=== PATIENT | male | born 1950 | race Caucasian/White ===

== ENCOUNTER 2017-03-08 11:03 | Inpatient (IN) | payer BC ==
[2017-03-08 11:18] VITALS: BMI 28.7
--- NOTE | 2017-03-08 11:49 | PDOC ---
History of Present Illness - General Chief Complaint: CVA/TIA Stated Complaint: NUMBNESS (HANDS) Time Seen by Provider: 03/08/17 11:23 - History of Present Illness Initial Comments: 03/08/17 11:44 66 yo M with h/o CAD, ME s/p CABG, HTN, and RA who presents withhand numbness/ tingling. Pt. reports increased numbness/tingling of BL distal extremities, lateral forearms, and deltoid muscles beginning Wednesday evening ( 03/06).Was shoveling prior to incident. States that numbness and tingling of shoulder and arms has improved, but distal fingertips remains. Denies weakness, N/V, fevers/ chills, SOB, GI, or complaints. Denies neck trauma/straining. Denies h/o nutritional deficits. Past History - Past Medical History Allergies/Adverse Reactions: Allergies Allergy/AdvReac Type Severity Reaction Status Date / Time No Known Allergies Allergy Verified 03/08/17 11:14 Home Medications: Ambulatory Orders Aspirin [ASA -] 81 mg PO DAILY 05/10/13 Atorvastatin Ca [Lipitor -] 10 mg PO HS 05/10/13 Metoprolol Tartrate [Lopressor -] 25 mg PO DAILY 05/10/13 Cancer: Yes (prostate) Cardiac Disorders: Yes HTN: Yes Hypercholesterolemia: Yes - Surgical History Cardiac Surgery: Yes (STENT x2) - Immunization History Immunization Up to Date: No - Psycho/Social/Smoking Cessation Hx Suicidal Ideation: No Smoking Status: Yes Smoking History: Former smoker Have you smoked in the past 12 months: Yes Number of Cigarettes Smoked Daily: 2 If you are a former smoker, when did you quit?: 3 weeks ago Information on smoking cessation initiated: No Hx Alcohol Use: No Drug/Substance Use Hx: No Review of Systems - Review of Systems Comments:: 03/08/17 11:50 GENERAL/CONSTITUTIONAL: No fever or chills. No weakness. HEAD, EYES, EARS, NOSE AND THROAT: No change in vision. No ear pain or discharge. No sore throat.- CARDIOVASCULAR: No chest pain or shortness of breath RESPIRATORY: No cough, wheezing, or hemoptysis. GASTROINTESTINAL: No nausea, vomiting, diarrhea or constipation. GENITOURINARY: No dysuria, frequency, or change in urination. MUSCULOSKELETAL: No joint or muscle swelling or pain. No neck or back pain. SKIN: No rash NEUROLOGIC: +Numbness/tingling. No headache, vertigo, loss of consciousness, or change in strength. ENDOCRINE: No increased thirst. No abnormal weight change HEMATOLOGIC/LYMPHATIC: No anemia, easy bleeding, or history of blood clots. ALLERGIC/IMMUNOLOGIC: No hives or skin allergy. *Physical Exam - Vital Signs Last Vital Signs Temp Pulse Resp BP Pulse Ox 97.6 F 45 L 18 159/76 98 03/08/17 11:15 03/08/17 11:15 03/08/17 11:15 03/08/17 11:15 03/08/17 11:15 - Physical Exam Comments: 03/08/17 11:53 GENERAL: Awake, alert, and fully oriented, in no acute distress HEAD: No signs of trauma, normocephalic, atraumatic EYES: PERRLA, EOMI, sclera anicteric, conjunctiva clear ENT: Auricles normal inspection, hearing grossly normal, nares patent, oropharynx clear without exudates. Moist mucosa NECK: Normal ROM, supple, no lymphadenopathy, JVD, or masses LUNGS: No distress, speaks full sentences, clear to auscultation bilaterally HEART: Regular rate and rhythm, normal S1 and S2, no murmurs, rubs or gallops, peripheral pulses normal and equal bilaterally. EXTREMITIES: Normal inspection, Normal range of motion, no edema. No clubbing or cyanosis. NEUROLOGICAL: Cranial nerves II through XII grossly intact. Gross motor strength and sensation intact. Normal TAYO, absent dysmetria on FTN. Normal speech, normal gait, no focal sensorimotor deficits SKIN: Warm, Dry, normal turgor, no rashes or lesions noted. ED Treatment Course - LABORATORY CBC & Chemistry Diagram: 03/08/17 11:42 03/08/17 11:42 - RADIOLOGY Radiograph Interpretation: 03/08/17 14:[address] (without contrast) Clinical information: arm numbness, tingling Multiplanar imaging was performed. There is a mild reversal of the cervical lordosis. Moderate to marked multilevel degenerative disc space narrowing is noted with associated spondylosis. Moderate right C3-C4 degenerative facet arthropathy is seen. There is mild multilevel left-sided facet arthropathy. Moderate C3-C4 and C5-C6 central canal stenosis is seen secondary to spondylosis. Marked right C3-C4, moderate to marked left C3-C4, marked right C4-C5, moderate to marked left C4- C5, marked right C5-C6, moderate left C5-C6, marked right C6-C7 and moderate to marked left C6-C7 foraminal stenoses are noted secondary to uncovertebral joint hypertrophy. No gross disc herniation is identified allowing for beam hardening artifact. The perivertebral soft tissues demonstrate no obvious abnormality. Impression: Multilevel canal stenosis is seen as discussed above. Medical Decision Making - Medical Decision Making 03/08/17 11:54 66 yo M with h/o CAD, ME s/p CABG, HTN, and RA who presents with BL hand numbness/tingling. Patient with chief complaint of bilateral UE parasthesias with no associated weakness. Low suspicion for CVA given absent neuro deficits on physical exam. Low suspicion for DVT given absent exam findings. Low suspicion for PAD. Pulses intact and patient with absent clinical s/s. DDX: Nutritional deficit, Anxiety ED course CBC, CMP, Mg, Ph, TSH Cardiac Profile CBC: Unremarkable Trop: 0.08 CK-MB/CK index: 390/8.3 03/08/17 12:[address] Reyna on phone, He recommends CT and MRI without contrast to evaluate possible central cord syndrome vs. raman Shovelers fracture. 03/08/17 14:37 MRI Cervical: IMPRESSION: Small to moderate central/right paramedian C3-C4 disc herniation. Small to moderate central C5-C6 disc herniation. Multilevel bilateral foraminal stenoses. Multilevel degenerative disc and facet joint changes. CT: Cervical: Impression: Multilevel canal stenosis is seen as discussed above. Dr. Walsh will perform surgery on pt. within 48 hours. Admit to [facility]. *DC/Admit/Observation/Transfer Diagnosis at time of Disposition: Cervical spinal stenosis - Discharge Dispostion Condition at time of disposition: Good Admit: Yes - Referrals Referrals: Brooks Franco MD [Primary Care Provider] -
[2017-03-08] MEDS ORDERED: KETOROLAC TROMETHAMINE 30 MG/1 ML VIAL IVPUSH ONE (12:01)
[2017-03-08 12:06] LABS: MCH 31.6 pg (25.7-33.7); MCHC 33.8 g/dl (32.0-35.9); MEAN CELL VOLUME 93.4 fl (80-96); MEAN PLT VOLUME 8.3 fl (7.5-11.1); NEUTROPHILS 46.9 % (42.8-82.8); PLATELET COUNT 250 K/MM3 (134-434); RDW 13.6 % (11.9-15.9)
[2017-03-08] MEDS ORDERED: KETOROLAC TROMETHAMINE 30 MG/1 ML VIAL ONE (12:10)
[2017-03-08 12:36] LABS: ALBUMIN 3.8 g/dl (3.4-5.0); ALK PHOS 66 U/L (45-117); ANION GAP 8 (8-16); BILIRUBIN,TOTAL 0.2 mg/dL (0.2-1.0); CALCIUM 8.9 mg/dL (8.5-10.1); CO2 27 mmol/L (21-32); GLUCOSE,RANDOM 96 mg/dL (74-106); SGOT/AST 22 U/L (15-37); SGPT/ALT 34 U/L (12-78)
--- NOTE | 2017-03-08 12:41 | PDOC ---
Attending Attestation - Resident Resident Name: DenzelAustin - ED Attending Attestation I have performed the following: I have examined & evaluated the patient, The case was reviewed & discussed with the resident, I agree w/resident's findings & plan, Exceptions are as noted - HPI HPI: 03/08/17 12:52 66-year-old male with past medical history of rheumatoid arthritis, coronary disease, hypertension presents with bilateral paresthesias and numbness along the upper extremities. 3 days ago, the patient was shoveling quite vigorously in the daughter. Subsequently the following day, developed keep-like distribution of numbness, burning and numbness along the fingertips the fingers and the arms. Status worse in the ulnar distribution. Denies chest pain or short of breath. Denies neck pain. - Physicial Exam PE: 03/08/17 12:55 GENERAL: Awake, alert, and fully oriented, in no acute distress. HEAD: No signs of trauma EYES: PERRLA, EOMI, sclera anicteric, conjunctiva clear ENT: Auricles normal inspection, hearing grossly normal, nares patent, oropharynx clear without exudates. NECK: Normal ROM, supple, no lymphadenopathy, JVD, or masses LUNGS: Breath sounds equal, clear to auscultation bilaterally. No wheezes, and no crackles HEART: Regular rate and rhythm, normal S1 and S2, no murmurs, rubs or gallops ABDOMEN: Soft, nontender, normoactive bowel sounds. No guarding, no rebound. No masses EXTREMITIES: Normal range of motion, no edema. No clubbing or cyanosis. No cords, erythema, or tenderness NEUROLOGICAL: Cranial nerves II through XII intact. Normal speech, normal gait. Parasthesias elicited along all fingertips of bilateral hands. 5/5 strength upper and lower extremities. No pronator drift. SKIN: Warm, Dry, normal turgor, no rashes or lesions noted. - Medical Decision Making 03/08/17 12:58 Vital Signs Temp Pulse Resp BP Pulse Ox 97.6 F 45 L 18 159/76 98 03/08/17 11:15 03/08/17 11:15 03/08/17 11:15 03/08/17 11:15 03/08/17 11:15 Patient's paresthesias have improved but still persistent. However, given the shoveling and history rheumatoid arthritis, we'll need to consider potential raman call or contact centre manager's fracture versus central cord syndrome. We have discussed the case with neurosurgeon Dr. Sebas Negron we'll recommends that we obtained both a CT cervical spine without contrast and MRI spine without contrast. We'll reassess. 03/08/17 14:04 CT scan demonstrates markedly right C3-C4, moderate to markedly left C3-C4, moderate to markedly left C4-C5 and a markedly right C5-C6 and a moderate left C5-C6, markedly right C6 and C7 in moderate to marked and left C6-C7 foraminal stenosis. CBC, BMP 03/08/17 11:42 03/08/17 11:42 CMP Sodium 140 mmol/L (136-145) 03/08/17 11:42 Potassium 4.5 mmol/L (3.5-5.1) 03/08/17 11:42 Chloride 105 mmol/L (98-107) 03/08/17 11:42 Carbon Dioxide 27 mmol/L (21-32) 03/08/17 11:42 Anion Gap 8 (8-16) 03/08/17 11:42 BUN 14 mg/dL (7-18) D 03/08/17 11:42 Creatinine 1.0 mg/dL (0.7-1.3) 03/08/17 11:42 Creat Clearance w eGFR > 60 (>60) 03/08/17 11:42 Random Glucose 96 mg/dL (74-106) 03/08/17 11:42 Calcium 8.9 mg/dL (8.5-10.1) 03/08/17 11:42 Phosphorus 3.2 mg/dL (2.5-4.9) 03/08/17 11:50 Magnesium 2.1 mg/dL (1.8-2.4) D 03/08/17 11:50 Total Bilirubin 0.2 mg/dL (0.2-1.0) 03/08/17 11:42 AST 22 U/L (15-37) 03/08/17 11:42 ALT 34 U/L (12-78) D 03/08/17 11:42 Alkaline Phosphatase 66 U/L (45-117) D 03/08/17 11:42 Creatine Kinase 390 IU/L (39-308) H 03/08/17 11:50 Creatine Kinase Index 2.1 % (0.0-5.0) 03/08/17 11:50 CK-MB (CK-2) 8.3 ng/mL (0.5-3.6) H 03/08/17 11:50 Troponin I 0.08 ng/ml (0.00-0.05) H D 03/08/17 11:50 Total Protein 7.0 g/dl (6.4-8.2) 03/08/17 11:42 Albumin 3.8 g/dl (3.4-5.0) 03/08/17 11:42 03/08/17 14:27 MRI results reviewed. Case reviewed with DR. Negron by the resident. Dr. Negron states will see patient and will need admission. 03/08/17 14:59 Trop is 0.08. However, patient does not have chest pain. Will hold from aspirin for now. Pt noted to be bradycardic to 40s. Will need to admit to telemetry and will need cardiology consultation. Heart Score/ECG Review #1 ECG reviewed & interpreted by me at: 11:50 03/08/17 12:57 NSR 49, no std/sheldon, Q wave III, normal axis, normal intervals, QTC 397 msec
[2017-03-08 13:11] LABS: MAGNESIUM 2.1 mg/dL (1.8-2.4); PHOSPHOROUS 3.2 mg/dL (2.5-4.9)
[2017-03-08 13:13] LABS: TROPONIN I 0.08 ng/ml (0.00-0.05)
[2017-03-08 14:19] LABS: THYROID STIMULATING HORMONE 2.66 uIU/ml (0.358-3.74)
--- NOTE | 2017-03-08 15:30 | HP ---
CHIEF COMPLAINT: "I have tingling to my fingertips on both hands." PCP: Nomi Ha HISTORY OF PRESENT ILLNESS: This is a 66 yo man with PMH HTN, HLD, ID s/p CABG, prostate CA s/p radical prostatectomy ' who presents today with bilateral numbness and tingling from his shoulder down to his fingertips. He states he felt a pulling sensation to his neck/upper back on 03/05 with subsequent tingling to fingers. The tingling spontaneously resolved. 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 He denies trauma, fevers, headaches, weakness, chest pain, dizziness or SOB. ER course was notable for: (1) MRI- multilevel foramen stenosis with herniation C3-C4 and C5-C6 (2) Troponin- 0.08 (3) CT (-) for raman lining vamper's fracture Recent Travel: denies PAST MEDICAL HISTORY: see HPI PAST SURGICAL HISTORY: see HPI Social History: Smokin pack years quit 1 month ago Alcohol: denies Drugs: denies Family History: unknown Allergies No Known Allergies Allergy (Verified 03/08/17 11:14) HOME MEDICATIONS: Home Medications Medication Instructions Recorded Aspirin [ASA -] 81 mg PO DAILY 05/10/13 Atorvastatin Ca [Lipitor -] 10 mg PO HS 05/10/13 Metoprolol Tartrate [Lopressor -] 25 mg PO DAILY 05/10/13 REVIEW OF SYSTEMS CONSTITUTIONAL: Absent: fever, chills, diaphoresis, generalized weakness, malaise, loss of appetite, weight change HEENT: Absent: rhinorrhea, nasal congestion, throat pain, throat swelling, difficulty swallowing, mouth swelling, ear pain, eye pain, visual changes CARDIOVASCULAR: Absent: chest pain, syncope, palpitations, irregular heart rate, lightheadedness , peripheral edema RESPIRATORY: Absent: cough, shortness of breath, dyspnea with exertion, orthopnea, wheezing, stridor, hemoptysis GASTROINTESTINAL: Absent: abdominal pain, abdominal distension, nausea, vomiting, diarrhea, constipation, melena, hematochezia GENITOURINARY: Absent: dysuria, frequency, urgency, hesitancy, hematuria, flank pain, genital pain MUSCULOSKELETAL: Absent: myalgia, arthralgia, joint swelling, back pain, neck pain SKIN: Absent: rash, itching, pallor HEMATOLOGIC/IMMUNOLOGIC: Absent: easy bleeding, easy bruising, lymphadenopathy, frequent infections ENDOCRINE: Absent: unexplained weight gain, unexplained weight loss, heat intolerance, cold intolerance NEUROLOGIC: Present- bilateral upper extremity paresthesias, bladder incontinence Absent: headache, focal weakness, dizziness, unsteady gait, seizure, mental status changes, bowel incontinence PSYCHIATRIC: Absent: anxiety, depression, suicidal or homicidal ideation, hallucinations. PHYSICAL EXAMINATION Vital Signs - 24 hr 03/08/17 03/08/17 03/08/17 11:15 13:02 14:18 Temperature 97.6 F Pulse Rate 45 L Pulse Rate [ 48 L 45 L Left Radial] Respiratory 18 18 18 Rate Blood Pressure 159/76 Blood Pressure 179/90 156/67 [Left Arm] O2 Sat by Pulse 98 98 100 Oximetry (%) GENERAL: Awake, alert, and fully oriented, in no acute distress. HEAD: Normal with no signs of trauma. EYES: Pupils equal, round and reactive to light, extraocular movements intact, sclera anicteric, conjunctiva clear. No lid lag. EARS, NOSE, THROAT: Ears normal, nares patent, oropharynx clear without exudates. Moist mucous membranes. NECK: Normal range of motion, supple without lymphadenopathy, JVD, or masses. LUNGS: Breath sounds equal, clear to auscultation bilaterally. No wheezes, and no crackles. No accessory muscle use. HEART: Regular rate and rhythm, normal S1 and S2 without murmur, rub or gallop. ABDOMEN: Soft, nontender, not distended, normoactive bowel sounds, no guarding, no rebound, no masses. No hepatomegaly or splenomegaly. MUSCULOSKELETAL: Normal range of motion at all joints. No bony deformities or tenderness. No CVA tenderness. UPPER EXTREMITIES: 2+ pulses, warm, well-perfused. No cyanosis. No clubbing. No peripheral edema. 5/5 strength. LOWER EXTREMITIES: 2+ pulses, warm, well-perfused. No calf tenderness. No peripheral edema. NEUROLOGICAL: Cranial nerves II-XII intact. Normal speech. Normal gait. Full sensation to bilateral upper extremities. Stress incontinence s/p radical prostatectomy. PSYCHIATRIC: Cooperative. Good eye contact. Appropriate mood and affect. SKIN: Warm, dry, normal turgor, no rashes or lesions noted, normal capillary refill. Laboratory Results - last 24 hr 03/08/17 03/08/17 03/08/17 11:42 11:42 11:50 WBC 5.0 D RBC 4.44 Hgb 14.0 Hct 41.5 MCV 93.4 MCH 31.6 MCHC 33.8 RDW 13.6 Plt Count 250 MPV 8.3 Neutrophils % 46.9 Lymphocytes % 35.1 Monocytes % 9.0 Eosinophils % 8.0 H Basophils % 1.0 Sodium 140 Potassium 4.5 Chloride 105 Carbon Dioxide 27 Anion Gap 8 BUN 14 D Creatinine 1.0 Creat Clearance w eGFR > 60 Random Glucose 96 Calcium 8.9 Phosphorus 3.2 Magnesium 2.1 D Total Bilirubin 0.2 AST 22 ALT 34 D Alkaline Phosphatase 66 D Creatine Kinase 390 H Creatine Kinase Index 2.1 CK-MB (CK-2) 8.3 H Troponin I 0.08 H D Total Protein 7.0 Albumin 3.8 TSH 2.66 IMAGING: MRI Cervical: IMPRESSION: Small to moderate central/right paramedian C3-C4 disc herniation. Small to moderate central C5-C6 disc herniation. Multilevel bilateral foraminal stenoses. Multilevel degenerative disc and facet joint changes. CT: Cervical: Impression: Multilevel canal stenosis is seen as discussed above. ASSESSMENT/PLAN: A: 66yo man with HTN, HLD, prostate CA s/p radical prostatectomy with cervical spine stenosis P: cervical stenosis - Neurosurgery [place] following - likely OR 03/09 or 03/10 elevated troponin - No chest pain - ASA 81mg daily - Lopressor 25mg daily - Lipitor 10mg HS - states he had a normal stress test 1 month ago - Cards consult- Francescone stress incontinence - s/p radical prostatectomy HTN - continue metoprolol parameters to hold HR<55 HLD - am Lipid panel - Lipitor 10mg HS F/E/N - replete prn - Low Na+ diet PPX - OOB - sqh Dispo- requires inpatient treatment of his acute medical conditions Visit type - Emergency Visit Emergency Visit: Yes Care time: The patient presented to the Emergency Department on the above date and was hospitalized for further evaluation of their emergent condition. - New Patient This patient is new to me today: Yes Date on this admission: 03/08/17 - Critical Care Critical Care patient: No
--- NOTE | 2017-03-08 16:59 | CON.CARD ---
Consult Consult Specialty:: cardiology Reason for Consultation:: hx CABG; pain in arms/back/hands - History of Present Illness History of Present Illness: 66 yo white man with h/o CAD, ND s/p CABG years ago, "the beginning of [employer]" recently diagnosed (leading to him stopping smoking), HTN, hyperlipidemia, and RA, who presents with hand numbness/tingling. Pt. reports increased numbness/ tingling of BL distal extremities, lateral forearms, and deltoid muscles beginning Wednesday evening ( 03/06).Was doing heavy, prolonged shoveling prior to incident. States that numbness and tingling of shoulder and arms has improved, but distal fingertips remains. Denies weakness, N/V, fevers/chills, chest pain, SOB, GI, or complaints. Denies neck trauma/straining. Denies h/o nutritional deficits. 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 Cardio/Vascular: Yes: CAD, HTN, Hyperlipdemia, ND Pulmonary: Yes: COPD Renal/: No: Renal Failure Heme/Onc: No: Anemia - Past Surgical History Past Surgical History: Yes: CABG - Alcohol/Substance Use Hx Alcohol Use: No - Smoking History Smoking history: Former smoker Have you smoked in the past 12 months: Yes Aproximately how many cigarettes per day: 2 If you are a former smoker, when did you quit?: 3 weeks ago - Social History Usual Living Arrangement: With Spouse Home Medications - Allergies Allergies/Adverse Reactions: Allergies Allergy/AdvReac Type Severity Reaction Status Date / Time No Known Allergies Allergy Verified 03/08/17 11:14 - Home Medications Home Medications: Ambulatory Orders Aspirin [ASA -] 81 mg PO DAILY 05/10/13 Atorvastatin Ca [Lipitor -] 10 mg PO HS 05/10/13 Metoprolol Tartrate [Lopressor -] 25 mg PO DAILY 05/10/13 Family Disease History - Family Disease History Family History: Denies Review of Systems - Review of Systems Constitutional: reports: Weakness (hands) Eyes: reports: No Symptoms HENT: reports: No Symptoms Neck: reports: Stiffness Cardiovascular: reports: No Symptoms Respiratory: reports: No Symptoms Gastrointestinal: reports: No Symptoms Genitourinary: reports: No Symptoms Breasts: reports: No Symptoms Reported Musculoskeletal: reports: Extremity Pain, Joint Pain, Muscle Weakness Integumentary: reports: No Symptoms Neurological: reports: Numbness, Parasthesia, Weakness Endocrine: reports: No Symptoms Psychiatric: reports: No Symptoms - Risk Factors Known Risk Factors: Yes: Age, Gender, Hypercholesterolemia, Hypertension, Smoking, Other (hx ND, CABG, COPD) Vital Signs: Vital Signs Temperature 97.8 F 03/08/17 16:36 Pulse Rate 55 L 03/08/17 16:36 Respiratory Rate 20 03/08/17 16:36 Blood Pressure 145/88 03/08/17 16:36 O2 Sat by Pulse Oximetry (%) 100 03/08/17 16:05 Constitutional: Yes: Calm Eyes: Yes: WNL HENT: Yes: WNL Neck: Yes: WNL Respiratory: Yes: WNL Gastrointestinal: Yes: WNL Renal/: No: Anuria Cardiovascular: Yes: Bradycardia JVD: No Carotid Bruit: No Heart Sounds: Yes: S1, S2, S4 Musculoskeletal: Yes: Joint Stiffness Extremities: Yes: Other (numbness in hands) Edema: No Peripheral Pulses WNL: Yes Integumentary: Yes: Incision (old CABG scar) Neurological: Yes: Alert, Oriented, Numbness, Weakness Psychiatric: Yes: WNL - Other Data Prior Cardiac Procedures: CABG Imaging - Results Chest X-ray: Pending EKG: Image Reviewed (sinus bradycardia; LVH; ?old IWMI) Problem List - Problems (1) Troponin I above reference range Assessment/Plan: mildly elevated TNI of 0.08, with elevated CK (low CK:CKMB relative index). No chest pain; hx heavy shoveling. EKG and telemetry: sinus bradycardia; no acute ST-T changes. Code(s): R74.8 - ABNORMAL LEVELS OF OTHER SERUM ENZYMES (2) Hx of CABG Assessment/Plan: hx ND; CABG On metoprolol at home (?metoprolol tartrate 25 mg only once a day); mildly bradycardic, with no acute ST-T changes. TNI 0.08, (with elevated CK and rel index only 2; was doing heavy physical labor ); f/u TNI and EKG serially. F/u hx recent outpatient cardiac workup. BP initially elevated. F/u ECHO regarding LVEF, wall thickness and motion, valves Code(s): Z95.1 - PRESENCE OF AORTOCORONARY BYPASS GRAFT (3) Paresthesia of upper extremity Assessment/Plan: f/u with neurologist, neurosurgeon. Code(s): R20.2 - PARESTHESIA OF SKIN (4) Sinus bradycardia Assessment/Plan: on metoprolol. F/u TSH. Code(s): R00.1 - BRADYCARDIA, UNSPECIFIED
[2017-03-08] MEDS ORDERED: HEPARIN NA (PORCINE) 5,000 UNITS/ML 1ML VIAL SQ SCH (22:00)
[2017-03-08] MEDS ORDERED: ATORVASTATIN CA 10 MG TABLET (FP) PO SCH (22:00)
[2017-03-08] MEDS ORDERED: CHLORHEXIDINE GLUCONATE 4% CLEANSER FOR DECOLONIZATION TP SCH (22:00)
[2017-03-08] MEDS ORDERED: ZOLPIDEM TARTRATE 5 MG TABLET PO ONE (22:01)
--- NOTE | 2017-03-08 22:01 | EKG ---
Test Reason : Blood Pressure : / mmHG Vent. Rate : 049 BPM Atrial Rate : 049 BPM P-R Int : 160 ms QRS Dur : 098 ms QT Int : 440 ms P-R-T Axes : 018 007 018 degrees QTc Int : 397 ms SINUS BRADYCARDIA INFERIOR INFARCT (CITED ON OR BEFORE 03-FEB-2005) ABNORMAL ECG WHEN COMPARED WITH ECG OF 10-MAY-2013 02:03, NO SIGNIFICANT CHANGE WAS FOUND Confirmed by FABIAN LACKEY, VINI ([id number]) on 03/08/2017 10:00:37 PM Referred By: Confirmed By:VINI PERALTA MD
--- NOTE | 2017-03-08 22:21 | CONSULT ---
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 He rested for a couple of days and resumed digging today since his symptoms had abated. Unfortunately, soon after resumption of the work, he noted increased pain and burning into his fingertips. He states that he "overdid it" and regrets the vigorous project which he was attempting. He has some numbness and paresthesias into his fingers and loss of fine motor skills which is also associated with dropping things. He has generally good strength, however, he does note increased tone. He has no new bowel and bladder symptoms. 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 This is particularly aggravated at C34 and C67 where acute disc herniations significantly contribute to the spinal cord compression. I had a long discussion with the patient concerning the risks, benefits and alternatives to cervical decompression and stabilization. I described focal procedures as well as those which would address multiple levels. I discussed anterior, posterior and combined approaches in great detail. Given the acute disc herniations which are best treated from a ventral approach and the need to decompress over 4 levels and restore lordosis in the setting of Rheumatoid arthritis and other medical comorbidities, I feel that the best course of action would be a complete decompression and stabilization performed in one sitting. I described a planned, two-stage treatment plan consisting of: Stage 1 C4, C5 and C6 Corpectomies, alevism of lordosis, reconstruction with a PEEK cage and anterior plating. Stage 2 C3-7 Laminectomies, alevism of lordosis, and lateral mass instrumentation. I explained that the risks included, but were not limited to: , coma, paralysis, bleeding, infection, CSF leakage possibly requiring spinal drainage or additional surgery, instrumentation migration/malfunction/malposition and failure to improve. I offered him the option of seeking another opinion or another surgeon. All questions were answered. Informed consent was obtained. I explained that he would need cardiac clearance prior to proceeding. The patient verbalizes an understanding of this information and asked intelligent questions. He asks that we proceed with surgery on an expedited basis.
[2017-03-09] MEDS ORDERED: ZOLPIDEM TARTRATE 5 MG TABLET PO ONE (00:45)
[2017-03-09 07:03] LABS: BASOPHIL 1.3 % (0-2.0); EOSINOPHIL 7.5 % (0-4.5); MCH 30.8 pg (25.7-33.7); MCHC 32.9 g/dl (32.0-35.9); MEAN CELL VOLUME 93.6 fl (80-96); MEAN PLT VOLUME 8.2 fl (7.5-11.1); NEUTROPHILS 44.4 % (42.8-82.8); PLATELET COUNT 227 K/MM3 (134-434); RDW 13.8 % (11.9-15.9); WHITE BLOOD COUNT 5.8 K/mm3 (4.0-10.0)
[2017-03-09] MEDS ORDERED: GENTAMICIN SO4 80 MG/2 ML VIAL ONE ×2 (08:18→13:42)
[2017-03-09] MEDS ORDERED: BUPIVACAINE HCL/PF 0.5% (5MG/ML) 10 ML VIAL ONE ×2 (08:19→10:38)
--- NOTE | 2017-03-09 09:16 | PN ---
Physical Exam: SUBJECTIVE: Patient seen and examined in ICU on return from PACU. OBJECTIVE: Vital Signs Period Temp Pulse Resp BP Sys/Hartmann Pulse Ox Last 24 Hr 97.6 F-98.2 F 50-55 16-20 145-163/59-88 94-100 GENERAl/NEURO: The patient is awake, alert, answering questions, moving all extremities. NECK: Hard cervical collar in place LUNGS: CTA HEART: Regular rate and rhythm, S1, S2 without murmur, rub or gallop. ABDOMEN: Soft, nontender, nondistended EXTREMITIES: 2+ pulses, warm, well-perfused, no edema. Laboratory Results - last 24 hr 03/08/17 03/09/17 03/09/17 16:45 01:00 06:30 WBC 5.8 RBC 4.63 Hgb 14.2 Hct 43.3 MCV 93.6 MCH 30.8 MCHC 32.9 RDW 13.8 Plt Count 227 MPV 8.2 Neutrophils % 44.4 Lymphocytes % 39.5 Monocytes % 7.3 Eosinophils % 7.5 H Basophils % 1.3 PTT (Actin FS) Sodium Potassium Chloride Troponin I 0.06 H 0.06 H 03/09/17 03/09/17 06:30 06:30 WBC RBC Hgb Hct MCV MCH MCHC RDW Plt Count MPV Neutrophils % Lymphocytes % Monocytes % Eosinophils % Basophils % PTT (Actin FS) 36.5 H Sodium 139 Potassium 4.3 Chloride 106 Troponin I Active Medications Generic Name Dose Route Start Last Admin Trade Name Freq PRN Reason Stop Dose Admin Aspirin 81 mg 03/09/17 10:00 Ecotrin - PO DAILY LEONILA Atorvastatin Calcium 10 mg 03/08/17 22:00 03/08/17 23:05 Lipitor - PO 10 mg HS LEONILA Administration Chlorhexidine Gluconate 1 applic 03/08/17 22:00 03/08/17 21:00 Hibiclens For Decolonization - TP 1 applic HS LEONILA Administration Heparin Sodium (Porcine) 5,000 unit 03/08/17 22:00 03/08/17 23:05 Heparin - SQ 5,000 unit BID LEONILA Administration Metoprolol Tartrate 25 mg 03/09/17 10:00 Lopressor - PO DAILY LEONILA ASSESSMENT/PLAN: 66 year-old male with a PMH significant for HTN, HLD, [place] s/p stent(s), prostate cancer s/p radical prostatectomy (2013), admitted for C3-C4, C5-C6 cervical disc hernation. Cervical spinal stenosis C3-C4, C5-C6 disc herniation --to OR today with Dr. 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 Full Code. Visit type - Emergency Visit Emergency Visit: Yes ED Registration Date: 03/08/17 Care time: The patient presented to the Emergency Department on the above date and was hospitalized for further evaluation of their emergent condition. - New Patient This patient is new to me today: Yes Date on this admission: 03/09/17 - Critical Care Critical Care patient: Yes Total Critical Care Time (in minutes): 35 Critical Care Statement: The care of this patient involved high complexity decision making to prevent further life threatening deterioration of the patient 's condition and/or to evaluate & treat vital organ system(s) failure or risk of failure.
[2017-03-09] MEDS ORDERED: MIDAZOLAM HCL 2 MG/2 ML SINGLE DOSE VIAL ONE (09:26)
[2017-03-09 09:30] LABS: PHOSPHOROUS 3.4 mg/dL (2.5-4.9)
[2017-03-09] MEDS ORDERED: PROPOFOL 20 ML ONE ×2 (09:37→12:21)
[2017-03-09] MEDS ORDERED: ROCURONIUM BROMIDE 50 MG/5 ML VIAL ONE ×2 (09:37→13:00)
[2017-03-09] MEDS ORDERED: LIDOCAINE HCL/PF 2% SDV 5ML VIAL ONE ×2 (09:37→13:53)
[2017-03-09] MEDS ORDERED: ETOMIDATE 20 MG/10 ML AMPUL IVPUSH ONE ×2 (09:37)
--- NOTE | 2017-03-09 09:41 | PN ---
Progress Note, Physician Chief Complaint: numbness and tingling both hands and fingers with episodic burning down both arms. - Current Medication List Current Medications: Active Medications Atorvastatin Calcium (Lipitor -) 10 mg PO HS [facility] Last Admin: 03/08/17 23:05 Dose: 10 mg Chlorhexidine Gluconate (Hibiclens For Decolonization -) 1 applic TP HS [facility] Last Admin: 03/08/17 21:00 Dose: 1 applic Heparin Sodium (Porcine) (Heparin -) 5,000 unit SQ BID [facility] Last Admin: 03/08/17 23:05 Dose: 5,000 unit Metoprolol Tartrate (Lopressor -) 25 mg PO DAILY [facility] - Objective Vital Signs: Vital Signs Temperature 97.7 F 03/09/17 08:42 Pulse Rate 53 L 03/09/17 08:42 Respiratory Rate 18 03/09/17 08:42 Blood Pressure 152/78 03/09/17 08:42 O2 Sat by Pulse Oximetry (%) 94 L 03/08/17 20:00 Constitutional: Yes: Calm Eyes: Yes: Conjunctiva Clear Cardiovascular: Yes: Regular Rate and Rhythm, S1, S2 (RRR, no murmurs) Respiratory: Yes: CTA Bilaterally Gastrointestinal: Yes: Soft Edema: No Neurological: Yes: Alert, Oriented ...Motor Strength: WNL Labs: CBC, BMP 03/09/17 06:30 03/09/17 06:30 Laboratory Tests 03/08/17 03/08/17 03/08/17 11:42 11:50 16:45 WBC Hgb Plt Count Potassium Chloride Creatinine 1.0 Troponin I 0.08 H D 0.06 H TSH 2.66 03/09/17 03/09/17 03/09/17 01:00 06:30 06:30 WBC 5.8 Hgb 14.2 Plt Count 227 Potassium 4.3 Chloride 106 Creatinine Troponin I 0.06 H TSH - ....Imaging EKG: Image Reviewed (NSR with old inferior Q waves) Assessment/Plan Cervical radiculopathy due to moderate disc herniations at C3/4/5/6 Spinal stenosis CAD w/ remote inferior NV and PCI, recent stress test with old infarct and no sig ischemia REC: There are no absolute cardiac contraindications to proposed surgery for decompression. The slightly elevated CK likely due to heavy outdoor physical activity, no clinical concern for ACS/NV. ECG stable. Continue beta niko and resume ASA post op when feasible.
[2017-03-09] MEDS: ceFAZolin SODIUM 1 GM VIAL IVPB ONE ×2 (09:45→17:25)
[2017-03-09 09:53] LABS: ANION GAP 12 (8-16); CALCIUM 8.8 mg/dL (8.5-10.1); CHOLESTEROL 141 mg/dL (50-200); CO2 23 mmol/L (21-32); CREATININE 0.9 mg/dL (0.7-1.3); GLUCOSE,RANDOM 94 mg/dL (74-106); MAGNESIUM 2.1 mg/dL (1.8-2.4)
[2017-03-09] MEDS ORDERED: ePHEDrine SULFATE 50 MG/1 ML AMPULE ONE (09:56)
[2017-03-09] MEDS ORDERED: ceFAZolin SODIUM 1 GM VIAL ONE ×3 (09:56→16:46)
[2017-03-09] MEDS ORDERED: METOPROLOL TARTRATE 25 MG TABLET (FP) PO SCH (10:00)
[2017-03-09] MEDS ORDERED: ASPIRIN COATED 81 MG TABLET.EC PO SCH (10:00)
[2017-03-09] MEDS ORDERED: LIDOCAINE HCL 0.5% EPINEPHRINE 1:200,000 50 ML VIAL IJ ONE ×3 (10:10→12:25)
[2017-03-09 10:17] LABS: INR 1.1 (0.82-1.09); PROTHROMBIN TIME (PATIENT) 12.1 SEC (9.98-11.88)
[2017-03-09] MEDS ORDERED: GENTAMICIN SO4 80 MG/2 ML VIAL IVPB ONE ×2 (10:30→13:30)
[2017-03-09] MEDS ORDERED: THROMBIN (BOVINE) 5,000 UNIT VIAL TP ONE ×2 (10:30→13:30)
[2017-03-09] MEDS ORDERED: BACITRACIN 50,000 UNITS VIAL TP ONE ×2 (10:30→13:30)
[2017-03-09] MEDS ORDERED: BACITRACIN 15 GM TUBE TOPICAL OINTMENT TP ONE (12:10)
[2017-03-09] MEDS ORDERED: BACITRACIN 15 GM TUBE TOPICAL OINTMENT ONE (12:18)
[2017-03-09] MEDS ORDERED: LIDOCAINE HCL 2% JELLY (5 ML/TUBE) ONE (13:53)
[2017-03-09] MEDS ORDERED: DEXAMETHASONE SOD PHOSPHATE 4 MG/1 ML VIAL ONE (13:53)
[2017-03-09] MEDS ORDERED: ONDANSETRON 4 MG/2 ML VIAL ONE (13:53)
[2017-03-09] MEDS ORDERED: BUPIVACAINE HCL/PF 0.5% (5MG/ML) 10 ML VIAL IJ ONE ×2 (14:32)
[2017-03-09] MEDS ORDERED: NEOSTIGMINE METHYLSULFATE 0.5 MG/ML - 10 ML MDV ONE (14:33)
[2017-03-09] MEDS ORDERED: GLYCOPYRROLATE 0.2 MG/1 ML VIAL ONE (14:33)
--- NOTE | 2017-03-09 14:58 | OP ---
Operative Note - Note: Operative Date: 03/09/17 Pre-Operative Diagnosis: Disc herniation Operation: Stage1: C4, C5 and C6 Corpectomies, taoist of lordosis, reconstruction with a PEEK cage and anterior plating. Stage 2:C3-7 Laminectomies, taoist of lordosis, and lateral mass instrumentation. Post-Operative Diagnosis: Same as Pre-op Surgeon: Sebas Negron Contract Analyst: Moise Garza Anesthesiologist/TOBACCO WAREHOUSE AGENT: Cynthia Belle MD Anesthesia: General Estimated Blood Loss (mls): 750 Drains, Volume Out (mls): 200 Fluid Volume Replaced (mls): 2,000 Operative Report Dictated: Yes
--- NOTE | 2017-03-09 14:59 | SURG ---
Surgery [employer] Teacher Note [employer] Teacher: Moise Garza PA-C Date of Service: 03/09/17 Diagnosis: Disc herniation with radiculopathy, myelopathic Procedure: Stage 1: C4, C5 and C6 Corpectomies, baptist of lordosis, reconstruction with a PEEK cage and anterior plating. Stage 2: C3-7 Laminectomies, baptist of lordosis, and lateral mass instrumentation. I was present for the entirety of the operative procedure. For further detail, please refer to operative report. Visit type - Case Type Case Type: ED Admission - Emergency Emergency Visit: Yes ED Registration Date: 03/08/17 Care time: The patient presented to the Emergency Department on the above date and was hospitalized for further evaluation of their emergent condition. - New patient This patient is new to me today: Yes Date on this admission: 03/09/17
[2017-03-09] MEDS ORDERED: METOPROLOL TARTRATE 5 MG/5 ML VIAL ONE (15:05)
[2017-03-09] MEDS ORDERED: ESMOLOL HCL 10 ML ONE (15:05)
[2017-03-09] MEDS ORDERED: DEXAMETHASONE SOD PHOSPHATE 4 MG/1 ML VIAL IVPUSH PRN (15:11)
[2017-03-09] MEDS ORDERED: ONDANSETRON 4 MG/2 ML VIAL IVPUSH PRN (15:11)
[2017-03-09] MEDS ORDERED: PROMETHAZINE HCL 25 MG/1 ML VIAL IVPB PRN (15:11)
[2017-03-09] MEDS: LABETALOL HCL 5 MG/1 ML (100MG/20 ML VIAL) IVPUSH ONE ×3 (15:40→20:23)
[2017-03-09] MEDS ORDERED: HYDROmorphone *PCA* 10MG/50ML DISP.SYRIN PCA ONE (16:33)
[2017-03-09] MEDS ORDERED: CYCLOBENZAPRINE HCL 10 MG TABLET (FP) PO PRN (16:46)
[2017-03-09] MEDS ORDERED: ACETAMINOPHEN 1000 MG/100 ML VIAL (NON FORMULARY) IVPB PRN (16:46)
[2017-03-09] MEDS ORDERED: CEFAZOLIN 1 GM in DEXTROSE 5%-WATER - 50 ML IVPB SCH (17:00)
[2017-03-09] MEDS ORDERED: LACTATED RINGERS SOLUTION 1,000 ML IV SCH (17:00)
[2017-03-09] MEDS: HYDROmorphone *PCA* 10MG/50ML DISP.SYRIN PCA SCH ×2 (17:25→20:22)
--- NOTE | 2017-03-09 17:33 | PN ---
Physical Exam: SUBJECTIVE: Patient seen and examined in ICU on arrival from PACU. OBJECTIVE: Vital Signs Period Temp Pulse Resp BP Sys/Hartmann Pulse Ox Last 24 Hr 97.6 F-98.2 F 50-102 12-18 149-181/59-84 94-97 GENERAL/NEURO: The patient is awake, alert, responding to questions, moving all extremities. HEAD/NECK: hard collar in place EYES: PERRL, extraocular movements intact, sclera anicteric, conjunctiva clear. LUNGS: CTA. HEART: Regular rate and rhythm, S1, S2 without murmur, rub or gallop. ABDOMEN: Soft, nontender, nondistended EXTREMITIES: 2+ pulses, warm, well-perfused, no edema. Laboratory Results - last 24 hr 03/08/17 03/09/17 03/09/17 16:45 01:00 06:30 WBC 5.8 RBC 4.63 Hgb 14.2 Hct 43.3 MCV 93.6 MCH 30.8 MCHC 32.9 RDW 13.8 Plt Count 227 MPV 8.2 Neutrophils % 44.4 Lymphocytes % 39.5 Monocytes % 7.3 Eosinophils % 7.5 H Basophils % 1.3 INR PTT (Actin FS) Sodium Potassium Chloride Carbon Dioxide Anion Gap BUN Creatinine Random Glucose Calcium Phosphorus Magnesium Troponin I 0.06 H 0.06 H Triglycerides Cholesterol Blood Type Antibody Screen 03/09/17 03/09/17 03/09/17 06:30 06:30 06:30 WBC RBC Hgb Hct MCV MCH MCHC RDW Plt Count MPV Neutrophils % Lymphocytes % Monocytes % Eosinophils % Basophils % INR 1.10 PTT (Actin FS) 36.5 H Sodium 139 Potassium 4.3 Chloride 106 Carbon Dioxide 23 Anion Gap 12 BUN 14 Creatinine 0.9 Random Glucose 94 Calcium 8.8 Phosphorus 3.4 Magnesium 2.1 Troponin I Triglycerides 178 H Cholesterol 141 D Blood Type Antibody Screen 03/09/17 03/09/17 09:33 11:28 WBC RBC Hgb Hct MCV MCH MCHC RDW Plt Count MPV Neutrophils % Lymphocytes % Monocytes % Eosinophils % Basophils % INR PTT (Actin FS) Sodium Potassium Chloride Carbon Dioxide Anion Gap BUN Creatinine Random Glucose Calcium Phosphorus Magnesium Troponin I Triglycerides Cholesterol Blood Type A POSITIVE A POSITIVE Antibody Screen Negative Active Medications Generic Name Dose Route Start Last Admin Trade Name Freq PRN Reason Stop Dose Admin Acetaminophen 1,000 mg 03/09/17 16:46 Ofirmev Injection - IVPB 03/09/17 23:00 PRN PRN If narcotics are ineffective Aspirin 81 mg 03/10/17 10:00 Asa - PO DAILY [facility] Atorvastatin Calcium 10 mg 03/09/17 22:00 Lipitor - PO HS [facility] Chlorhexidine Gluconate 1 applic 03/09/17 22:00 Hibiclens For Decolonization - TP HS [facility] Cyclobenzaprine HCl 10 mg 03/09/17 16:46 Flexeril - PO 03/10/17 16:45 Q8H PRN MUSCLE SPASMS Dexamethasone Sodium Phosphate 4 mg 03/09/17 15:11 Decadron Injection - IVPUSH ONCE PRN NAUSEA AND/OR VOMITING Diphenhydramine HCl 12.5 mg 03/09/17 15:11 Benadryl Injection - IVPUSH ONCE PRN FOR ITCHING Fentanyl 50 mcg 03/09/17 15:12 03/09/17 16:00 Sublimaze Injection - IVPUSH 03/12/17 15:13 50 mcg [id number] PRN Administration PAIN Heparin Sodium (Porcine) 5,000 unit 03/09/17 22:00 Heparin - SQ BID [facility] Hydromorphone HCl 0 mg 03/09/17 15:15 Dilaudid Insulation Applicator - PRODUCTION FLOATER 03/16/17 15:11 PRODUCTION FLOATER [facility] Protocol Lactated Ringer's 1,000 mls @ 125 mls/hr 03/09/17 17:00 Lactated Ringers Solution IV ASDIR [facility] Cefazolin Sodium/Dextrose 50 mls @ 100 mls/hr 03/09/17 17:00 Ancef 2 Gm Premixed Ivpb - IVPB 03/10/17 16:59 Q8H-IV [facility] Metoprolol Tartrate 25 mg 03/10/17 10:00 Lopressor - PO DAILY [facility] Ondansetron HCl 4 mg 03/09/17 15:11 Zofran Injection IVPUSH 03/10/17 03:12 Q4H PRN NAUSEA AND/OR VOMITING Promethazine HCl 12.5 mg 03/09/17 15:11 Phenergan Injection - IVPB Q6H PRN NAUSEA AND/OR VOMITING ASSESSMENT/PLAN: 66 year-old male with a PMH significant for HTN, HLD, [place] s/p stent(s), prostate cancer s/p radical prostatectomy (2013), admitted for C3-C4, C5-C6 cervical disc hernation. Cervical spinal stenosis C3-C4, C5-C6 disc herniation --to OR today with Dr. Negron: underwent C4-C5-C6 corpectomies and mosque of lordosis with reconstruction with PEEK cage and anterior plate; also C3-C7 laminectomies and foraminotomies with mosque of lordosis and lateral mass instrumentation Hypertension --continue metoprolol Hyperlipidemia --continue Lipitor CAD s/p [place] s/p stents --continue metoprolol and Lipitor, hold ASA for now Prostate cancer s/p prostatectomy --no acute issues F/E/N Fluids: Electrolytes: replete as indicated Nutrition: DVT prophylasix: start subq heparin tomorrow if no bleeding issues; oob; ambulation Dispo: continues to require inpatient care. Full Code.
--- NOTE | 2017-03-09 20:59 | CONSULT ---
Consult Consult Specialty:: Pulm/CCM Reason for Consultation:: Post-op cervical disc herniation repair - History of Present Illness Chief Complaint: Post-op pain History of Present Illness: 66 yom with PMHx of HTN, HLD, [place] s/p stents, congenital cervical spine stenosis , Prostate Ca s/p radical prostatectomy who was admitted for cervical disc herniation and is now s/p C3-C7 laminectomies and instrumentation. He is transferred to ICU for post-op observation re cardiac history. Mr Bernstein was in his usual state of health until end of february herniated discs at C3-C4 and C6-C7 and spinal cord compression while shoveling. He reported intense numbness and burning in fingertips as well as decreased fine motor skills associated with dropping things. He denied any bladder or bowel dysfunction. On cardiac work-up for clearance for surgical repair was noted to have a troponin of 0.08 and elevated CK-MB. Plan for ICU observation post-op. In ICU rec'd A+O x3 VSS HR 86, BP 146/94 O2 sat 99% on 2L NC. Cervical collar in place with JPx2 to bulb drainage, moving all extremities, strong possum trapper, reports continued numbness and tingling. C/o 5/10 surgical site pain. 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 Cardio/Vascular: Yes: CAD, HTN, Hyperlipdemia, OK Pulmonary: Yes: COPD Renal/: No: Renal Failure - Past Surgical History Past Surgical History: Yes: CABG - Alcohol/Substance Use Hx Alcohol Use: No - Smoking History Smoking history: Former smoker Have you smoked in the past 12 months: Yes Aproximately how many cigarettes per day: 2 If you are a former smoker, when did you quit?: 3 weeks ago - Social History Usual Living Arrangement: With Spouse Home Medications - Allergies Allergies/Adverse Reactions: Allergies Allergy/AdvReac Type Severity Reaction Status Date / Time No Known Allergies Allergy Verified 03/08/17 11:14 - Home Medications Home Medications: Ambulatory Orders Aspirin [ASA -] 81 mg PO DAILY 05/10/13 Atorvastatin Ca [Lipitor -] 10 mg PO HS 05/10/13 Metoprolol Tartrate [Lopressor -] 25 mg PO DAILY 05/10/13 Family Disease History - Family Disease History Family History: Unremarkable Review of Systems - Review of Systems Constitutional: reports: No Symptoms Eyes: reports: No Symptoms HENT: reports: No Symptoms Neck: reports: Pain on Movement Cardiovascular: reports: No Symptoms Respiratory: reports: No Symptoms Gastrointestinal: reports: No Symptoms Genitourinary: reports: No Symptoms Neurological: reports: Numbness, Parasthesia (numbness, burning and tingling of fingersticks) Endocrine: reports: No Symptoms Hematology/Lymphatic: reports: No Symptoms Psychiatric: reports: No Symptoms Physical Exam Vital Signs: Vital Signs Temperature 98.3 F 03/09/17 17:25 Pulse Rate 86 03/09/17 19:25 Respiratory Rate 14 03/09/17 19:25 Blood Pressure 146/94 03/09/17 19:25 O2 Sat by Pulse Oximetry (%) 99 03/09/17 16:55 Constitutional: Yes: Well Nourished, No Distress Eyes: Yes: WNL HENT: Yes: Atraumatic, Normocephalic Neck: Yes: Other (cervical collar in place and intact, BRIANNA x2 from posterior surgical site to bulb with small amt bloody drainage) Respiratory: Yes: Regular, CTA Bilaterally, On Nasal O2 (2L) Gastrointestinal: Yes: Normal Bowel Sounds, Soft Renal/: Yes: Virk Present Extremities: Yes: WNL Edema: No Peripheral Pulses WNL: Yes Integumentary: Yes: WNL Wound/Incision: Yes: Clean/Dry Neurological: Yes: Alert, Oriented, Numbness, Tingling (States numbness and tingling in fingertips about the same as before surgery) ...Motor Strength: LUE, LLE, RUE, RLE Psychiatric: Yes: Alert, Oriented Labs: CBC, BMP 03/09/17 06:30 03/09/17 06:30 CBC,CMP WBC 5.8 K/mm3 (4.0-10.0) 03/09/17 06:30 RBC 4.63 M/mm3 (4.00-5.60) 03/09/17 06:30 Hgb 14.2 GM/dL (11.7-16.9) 03/09/17 06:30 Hct 43.3 % (35.4-49) 03/09/17 06:30 MCV 93.6 fl (80-96) 03/09/17 06:30 MCH 30.8 pg (25.7-33.7) 03/09/17 06:30 MCHC 32.9 g/dl (32.0-35.9) 03/09/17 06:30 RDW 13.8 % (11.9-15.9) 03/09/17 06:30 Plt Count 227 K/MM3 (134-434) 03/09/17 06:30 MPV 8.2 fl (7.5-11.1) 03/09/17 06:30 Neutrophils % 44.4 % (42.8-82.8) 03/09/17 06:30 Lymphocytes % 39.5 % (8-40) 03/09/17 06:30 Monocytes % 7.3 % (3.8-10.2) 03/09/17 06:30 Eosinophils % 7.5 % (0-4.5) H 03/09/17 06:30 Basophils % 1.3 % (0-2.0) 03/09/17 06:30 Sodium 139 mmol/L (136-145) 03/09/17 06:30 Potassium 4.3 mmol/L (3.5-5.1) 03/09/17 06:30 Chloride 106 mmol/L (98-107) 03/09/17 06:30 Carbon Dioxide 23 mmol/L (21-32) 03/09/17 06:30 Anion Gap 12 (8-16) 03/09/17 06:30 BUN 14 mg/dL (7-18) 03/09/17 06:30 Creatinine 0.9 mg/dL (0.7-1.3) 03/09/17 06:30 Creat Clearance w eGFR > 60 (>60) 03/08/17 11:42 Random Glucose 94 mg/dL (74-106) 03/09/17 06:30 Calcium 8.8 mg/dL (8.5-10.1) 03/09/17 06:30 Phosphorus 3.4 mg/dL (2.5-4.9) 03/09/17 06:30 Magnesium 2.1 mg/dL (1.8-2.4) 03/09/17 06:30 Total Bilirubin 0.2 mg/dL (0.2-1.0) 03/08/17 11:42 AST 22 U/L (15-37) 03/08/17 11:42 ALT 34 U/L (12-78) D 03/08/17 11:42 Alkaline Phosphatase 66 U/L (45-117) D 03/08/17 11:42 Creatine Kinase 390 IU/L (39-308) H 03/08/17 11:50 Creatine Kinase Index 2.1 % (0.0-5.0) 03/08/17 11:50 CK-MB (CK-2) 8.3 ng/mL (0.5-3.6) H 03/08/17 11:50 Troponin I 0.06 ng/ml (0.00-0.05) H 03/09/17 01:00 Total Protein 7.0 g/dl (6.4-8.2) 03/08/17 11:42 Albumin 3.8 g/dl (3.4-5.0) 03/08/17 11:42 Triglycerides 178 mg/dL (35-160) H 03/09/17 06:30 Cholesterol 141 mg/dL (50-200) D 03/09/17 06:30 TSH 2.66 uIU/ml (0.358-3.74) 03/08/17 11:50 Home Medication List Medication Instructions Recorded Confirmed Type Aspirin [ASA -] 81 mg PO DAILY 05/10/13 03/08/17 History Atorvastatin Ca [Lipitor -] 10 mg PO HS 05/10/13 03/08/17 History Metoprolol Tartrate [Lopressor -] 25 mg PO DAILY 05/10/13 03/08/17 History Active Medications Generic Name Dose Route Start Last Admin Trade Name Freq PRN Reason Stop Dose Admin Acetaminophen 1,000 mg 03/09/17 16:46 Ofirmev Injection - IVPB 03/09/17 23:00 PRN PRN If narcotics are ineffective Aspirin 81 mg 03/10/17 10:00 Asa - PO DAILY [facility] Atorvastatin Calcium 10 mg 03/09/17 22:00 Lipitor - PO [facility] Chlorhexidine Gluconate 1 applic 03/09/17 22:00 Hibiclens For Decolonization - TP [facility] Cyclobenzaprine HCl 10 mg 03/09/17 16:46 Flexeril - PO 03/10/17 16:45 Q8H PRN MUSCLE SPASMS Dexamethasone Sodium Phosphate 4 mg 03/09/17 15:11 Decadron Injection - IVPUSH ONCE PRN NAUSEA AND/OR VOMITING Diphenhydramine HCl 12.5 mg 03/09/17 15:11 Benadryl Injection - IVPUSH ONCE PRN FOR ITCHING Fentanyl 50 mcg 03/09/17 15:12 03/09/17 16:25 Sublimaze Injection - IVPUSH 03/12/17 15:13 50 mcg [id number] PRN Administration PAIN Heparin Sodium (Porcine) 5,000 unit 03/09/17 22:00 Heparin - SQ BID LEONILA Hydromorphone HCl 0 mg 03/09/17 15:15 03/09/17 20:22 Dilaudid Public Speaking Coach - [employer] ARCHITECT 03/16/17 15:11 Not Given [employer] [facility] Protocol Lactated Ringer's 1,000 mls @ 125 mls/hr 03/09/17 17:00 Lactated Ringers Solution IV ASDIR LEON[facility] Cefazolin Sodium/Dextrose 50 mls @ 100 mls/hr 03/09/17 17:00 Ancef 2 Gm Premixed Ivpb - IVPB 03/10/17 16:59 Q8H-IV [facility] Metoprolol Tartrate 25 mg 03/10/17 10:00 Lopressor - PO DAILY [facility] Ondansetron HCl 4 mg 03/09/17 15:11 Zofran Injection IVPUSH 03/10/17 03:12 Q4H PRN NAUSEA AND/OR VOMITING Promethazine HCl 12.5 mg 03/09/17 15:11 Phenergan Injection - IVPB Q6H PRN NAUSEA AND/OR VOMITING Problem List - Problems (1) Cervical spinal stenosis Code(s): M48.02 - SPINAL STENOSIS, CERVICAL REGION (2) Hx of CABG Code(s): Z95.1 - PRESENCE OF AORTOCORONARY BYPASS GRAFT (3) Paresthesia of upper extremity Code(s): R20.2 - PARESTHESIA OF SKIN Assessment/Plan 66 yom with PMHx of HTN, HLD, [place] s/p stents, congenital cervical spine stenosis , Prostate Ca who was admitted for cervical disc herniation and is now s/p C3- C7 laminectomies and instrumentation. He is transferred to ICU for post-op observation re cardiac history and elevated cardiac markers. Plan: -Post-op management as per neurosurgery -Maintain cervical collar -BRIANNA to bulb suction- assess amt and consistency -Monitor strength and sensation in extremities -[employer] ARCHITECT Dilaudid for post-op pain -HD monitoring -Trend troponin-already downtrending -Cont metoprolol and statin -Monitor I+Os -Advance diet as vi
[2017-03-09] MEDS: CEFAZOLIN 2 GM/D5W 50 ML IVPB SCH (21:21)
[2017-03-09] MEDS ORDERED: HEPARIN NA (PORCINE) 5,000 UNITS/ML 1ML VIAL SQ SCH (22:00)
[2017-03-09] MEDS ORDERED: ATORVASTATIN CA 10 MG TABLET (FP) PO SCH (22:00)
[2017-03-09] MEDS ORDERED: CHLORHEXIDINE GLUCONATE 4% CLEANSER FOR DECOLONIZATION TP SCH (22:00)
[2017-03-10] MEDS: CEFAZOLIN 2 GM/D5W 50 ML IVPB SCH ×3 (02:25→18:48)
[2017-03-10 06:15] LABS: MCH 31.5 pg (25.7-33.7); MCHC 33.8 g/dl (32.0-35.9); MEAN CELL VOLUME 93.1 fl (80-96); MEAN PLT VOLUME 8.3 fl (7.5-11.1); PLATELET COUNT 247 K/MM3 (134-434); RDW 13.7 % (11.9-15.9); WHITE BLOOD COUNT 14.1 K/mm3 (4.0-10.0)
[2017-03-10 06:38] LABS: ANION GAP 6 (8-16); CALCIUM 8.9 mg/dL (8.5-10.1); CO2 30 mmol/L (21-32); GLUCOSE,RANDOM 132 mg/dL (74-106); MAGNESIUM 1.8 mg/dL (1.8-2.4)
[2017-03-10 06:40] LABS: CREATININE 0.8 mg/dL (0.7-1.3); PHOSPHOROUS 3.2 mg/dL (2.5-4.9)
--- NOTE | 2017-03-10 08:21 | PN ---
Progress Note, Physician Chief Complaint: seen and examined ICU POD 1 alert no chest pain Moving all extremities TELE: NSR - Current Medication List Current Medications: Active Medications Aspirin (Asa -) 81 mg PO DAILY [facility] Atorvastatin Calcium (Lipitor -) 10 mg PO HS [facility] Last Admin: 03/09/17 21:23 Dose: 10 mg Chlorhexidine Gluconate (Hibiclens For Decolonization -) 1 applic TP HS [facility] Last Admin: 03/09/17 21:22 Dose: 1 applic Cyclobenzaprine HCl (Flexeril -) 10 mg PO Q8H PRN PRN Reason: MUSCLE SPASMS Stop: 03/10/17 16:45 Dexamethasone Sodium Phosphate (Decadron Injection -) 4 mg IVPUSH ONCE PRN PRN Reason: NAUSEA AND/OR VOMITING Diphenhydramine HCl (Benadryl Injection -) 12.5 mg IVPUSH ONCE PRN PRN Reason: FOR ITCHING Fentanyl (Sublimaze Injection -) 50 mcg IVPUSH [id number] PRN PRN Reason: PAIN Stop: 03/12/17 15:13 Last Admin: 03/09/17 16:25 Dose: 50 mcg Heparin Sodium (Porcine) (Heparin -) 5,000 unit SQ BID [facility] Last Admin: 03/09/17 21:22 Dose: 5,000 unit Hydromorphone HCl (Dilaudid Dietetic Aide -) 0 mg PORTRAIT PAINTER PORTRAIT PAINTER [facility] PRN Reason: Protocol Stop: 03/16/17 15:11 Last Admin: 03/09/17 20:22 Dose: Not Given Lactated Ringer's (Lactated Ringers Solution) 1,000 mls @ 125 mls/hr IV ASDIR [facility] Last Admin: 03/09/17 21:21 Dose: 125 mls/hr Cefazolin Sodium/Dextrose (Ancef 2 Gm Premixed Ivpb -) 50 mls @ 100 mls/hr IVPB Q8H-IV [facility] Stop: 03/10/17 16:59 Last Admin: 03/10/17 02:25 Dose: 100 mls/hr Metoprolol Tartrate (Lopressor -) 25 mg PO DAILY [facility] Promethazine HCl (Phenergan Injection -) 12.5 mg IVPB Q6H PRN PRN Reason: NAUSEA AND/OR VOMITING - Objective Vital Signs: Vital Signs Temperature 98.4 F 03/10/17 06:00 Pulse Rate 62 03/10/17 06:00 Respiratory Rate 16 03/10/17 06:00 Blood Pressure 144/69 03/10/17 06:00 O2 Sat by Pulse Oximetry (%) 99 03/09/17 21:00 Constitutional: Yes: No Distress, Calm Eyes: Yes: Conjunctiva Clear Cardiovascular: Yes: Regular Rate and Rhythm Respiratory: Yes: CTA Bilaterally Gastrointestinal: Yes: Soft Edema: No Neurological: Yes: Alert Labs: CBC, BMP 03/10/17 05:15 03/10/17 05:15 INR, PTT INR 1.10 (0.82-1.09) 03/09/17 06:30 Laboratory Tests 03/10/17 03/10/17 05:15 05:15 WBC 14.1 H D Hgb 12.3 D Plt Count 247 Sodium 135 L Potassium 4.4 Creatinine 0.8 - ....Imaging EKG: Image Reviewed Assessment/Plan Assessment/Plan Cervical radiculopathy due to moderate disc herniations at C3/4/5/6 now POD #1 Spinal stenosis CAD w/ remote inferior [place] and PCI, recent stress test with old infarct and no sig ischemia REC: Tolerated surgery well. Continue current meds including beta niko. Resume ASA 81mg daily when feasible from surgical standpoint.
--- NOTE | 2017-03-10 09:10 | PN ---
Progress Note (short form) - Note Progress Note: POD#1 Pt states that his left arm continues to have numbness/tingling. No pain otherwise/SOB. Tolerated clears without difficulty swallowing, throat is somewhat tender. Vital Signs Period Temp Pulse Resp BP Sys/Hartmann Pulse Ox Last 24 Hr 98.1 F-98.9 F 62-110 11-22 124-182/65-96 95-100 UOP-900ml clear/yellow BRIANNA-bloody lower neck/neck: 70 and 80ml GEN: A&Ox3, NAD HEENT: cervical collar in place anterior neck dressing c/d/i without any masses, remains soft posterior neck dressing c/d/i without any masses CV:RRR Lungs: CTA b/l anteriorly ABD: soft, non-distended, non-tender LE: SCDs in place, no calf tender/swelling noted b/l Neuro: gear setter strength equal b/l, LE: dorsi/plantar flexion 5/5 b/l CBC, BMP /06/ 05:15 03/10/ 05:15 A/P: 66 yo male Stage1: C4, C5 and C6 Corpectomies, restorationist of lordosis, reconstruction with a PEEK cage and anterior plating. Stage 2:C3-7 Laminectomies, restorationist of lordosis, and lateral mass instrumentation. S/w Dr. Negron and will advance diet to soft PT may be oob to chair/ambulate with PT with cervical collar at all times and no ROM to neck BRIANNA to remains in place Cervical neck collar at all times Virk to be removed May continue ASA, Heparin SQ for DVT ppx H&H with slight drop will monitor/ continue BRIANNA to bulb suction and monitor outpt
[2017-03-10] MEDS ORDERED: HEPARIN NA (PORCINE) 5,000 UNITS/ML 1ML VIAL SQ SCH (10:00)
[2017-03-10] MEDS ORDERED: ASPIRIN 81 MG CHEWABLE TABLETS PO SCH ×2 (10:00)
[2017-03-10] MEDS ORDERED: METOPROLOL TARTRATE 25 MG TABLET (FP) PO SCH (10:00)
--- NOTE | 2017-03-10 10:47 | PN ---
Physical Exam: SUBJECTIVE: Patient seen and examined in ICU at bedside. States has tingling in the fingertips of both hands, sometimes the right hand, sometimes the left hand. Mild nausea but declines offer of anti-emetic. OBJECTIVE: Vital Signs Period Temp Pulse Resp BP Sys/Hartmann Pulse Ox Last 24 Hr 98.1 F-98.9 F 62-110 11-22 124-182/65-96 95-100 GENERAL: The patient is awake, alert, and fully oriented, in no acute distress. NECK: Hard cervical collar in place. LUNGS: Breath sounds equal, clear to auscultation bilaterally, no wheezes, no crackles, no accessory muscle use. HEART: Regular rate and rhythm, S1, S2 without murmur, rub or gallop. ABDOMEN: Soft, nontender, nondistended, normoactive bowel sounds, no guarding, no rebound, no hepatosplenomegaly, no masses. EXTREMITIES: 2+ pulses, warm, well-perfused, no edema. Laboratory Results - last 24 hr 03/09/17 03/09/17 03/10/17 09:33 11:28 05:15 WBC 14.1 H D RBC 3.90 L Hgb 12.3 D Hct 36.3 D MCV 93.1 MCH 31.5 MCHC 33.8 RDW 13.7 Plt Count 247 MPV 8.3 Sodium Potassium Chloride Carbon Dioxide Anion Gap BUN Creatinine Random Glucose Calcium Phosphorus Magnesium Blood Type A POSITIVE A POSITIVE Antibody Screen Negative 03/10/17 05:15 WBC RBC Hgb Hct MCV MCH MCHC RDW Plt Count MPV Sodium 135 L Potassium 4.4 Chloride 99 Carbon Dioxide 30 D Anion Gap 6 L BUN 14 Creatinine 0.8 Random Glucose 132 H D Calcium 8.9 Phosphorus 3.2 Magnesium 1.8 Blood Type Antibody Screen Active Medications Generic Name Dose Route Start Last Admin Trade Name Freq PRN Reason Stop Dose Admin Aspirin 81 mg 03/10/17 10:00 03/10/17 09:35 Asa - PO 81 mg DAILY LE[facility] Administration Atorvastatin Calcium 10 mg 03/09/17 22:00 03/09/17 21:23 Lipitor - PO 10 mg HS [facility] Administration Chlorhexidine Gluconate 1 applic 03/09/17 22:00 03/09/17 21:22 Hibiclens For Decolonization - TP 1 applic HS [facility] Administration Cyclobenzaprine HCl 10 mg 03/09/17 16:46 Flexeril - PO 03/10/17 16:45 Q8H PRN MUSCLE SPASMS Dexamethasone Sodium Phosphate 4 mg 03/09/17 15:11 Decadron Injection - IVPUSH ONCE PRN NAUSEA AND/OR VOMITING Diphenhydramine HCl 12.5 mg 03/09/17 15:11 Benadryl Injection - IVPUSH ONCE PRN FOR ITCHING Fentanyl 50 mcg 03/09/17 15:12 03/09/17 16:25 Sublimaze Injection - IVPUSH 03/12/17 15:13 50 mcg [id number] PRN Administration PAIN Heparin Sodium (Porcine) 5,000 unit 03/10/17 10:00 03/10/17 09:36 Heparin - SQ 5,000 unit BID [facility] Administration Hydromorphone HCl 0 mg 03/09/17 15:15 03/09/17 20:22 Dilaudid Terminal Carman - RETAIL SOLAR ADVISOR 03/16/17 15:11 Not Given RETAIL SOLAR ADVISOR [facility] Protocol Lactated Ringer's 1,000 mls @ 125 mls/hr 03/09/17 17:00 03/09/17 21:21 Lactated Ringers Solution IV 125 mls/hr ASDIR [facility] Administration Cefazolin Sodium/Dextrose 50 mls @ 100 mls/hr 03/09/17 17:00 03/10/17 09:32 Ancef 2 Gm Premixed Ivpb - IVPB 03/10/17 16:59 100 mls/hr Q8H-IV [facility] Administration Metoprolol Tartrate 25 mg 03/10/17 10:00 03/10/17 09:32 Lopressor - PO 25 mg DAILY [facility] Administration Promethazine HCl 12.5 mg 03/09/17 15:11 Phenergan Injection - IVPB Q6H PRN NAUSEA AND/OR VOMITING ASSESSMENT/PLAN 66 year-old male with a PMH significant for HTN, HLD, [place] s/p stent(s), prostate cancer s/p radical prostatectomy (2013), admitted for C3-C4, C5-C6 cervical disc hernation. Cervical spinal stenosis C3-C4, C5-C6 disc herniation --POD #1 s/p C4-C5-C6 corpectomies and jainism of lordosis with reconstruction with PEEK cage and anterior plate; also C3-C7 laminectomies and foraminotomies with jainism of lordosis and lateral mass instrumentation --surgical dressings c/d/i --BRIANNA drains with bloody drainages --5/5 motor in all extremities --paresthesias to fingertips bilaterally --dilaudid RETAIL SOLAR ADVISOR --bowel regimen Hypertension --continue metoprolol Hyperlipidemia --continue Lipitor CAD s/p [place] s/p stents --continue metoprolol, Lipitor, ASA Prostate cancer s/p prostatectomy --no acute issues F/E/N Fluids: LR @ 125mL/hr Electrolytes: replete as indicated Nutrition:soft diet DVT prophylasix: subq heparin; oob; ambulation Dispo: continues to require inpatient care. Full Code. Visit type - Emergency Visit Emergency Visit: Yes ED Registration Date: 03/08/17 Care time: The patient presented to the Emergency Department on the above date and was hospitalized for further evaluation of their emergent condition. - New Patient This patient is new to me today: No - Critical Care Critical Care patient: Yes Total Critical Care Time (in minutes): 35 Critical Care Statement: The care of this patient involved high complexity decision making to prevent further life threatening deterioration of the patient 's condition and/or to evaluate & treat vital organ system(s) failure or risk of failure.
--- NOTE | 2017-03-10 11:53 | PN ---
Teaching Attending Note Name of Resident: Agustin Unger ATTENDING PHYSICIAN STATEMENT I saw and evaluated the patient. I reviewed the resident's note and discussed the case with the resident. I agree with the resident's findings and plan as documented. SUBJECTIVE: Pt seen and examined in the ICU. s/p C3-C7 laminectomies. Still with arm numbness and tingling. No weakness. OBJECTIVE: Last Vital Signs Temp Pulse Resp BP Pulse Ox 98.3 F 67 15 146/67 98 03/10/17 10:00 03/10/17 10:00 03/10/17 10:00 03/10/17 10:00 03/10/17 09:00 Intake & Output 03/07/17 03/08/17 03/09/17 03/10/17 23:59 23:59 23:59 23:59 Intake Total 2450 Output Total 1170 1050 Balance 1280 -1050 Weight 200 lb Gen: NAD in C-collar, +BRIANNA with serosanguinous drainage Heart: RRR Lung: decreased breath sounds at the bases Abd: soft, nontender Ext: no edema CBC, BMP 03/10/17 05:15 03/10/17 05:15 Active Medications Aspirin (Asa -) 81 mg PO DAILY [facility] Last Admin: 03/10/17 09:35 Dose: 81 mg Atorvastatin Calcium (Lipitor -) 10 mg PO [facility] Last Admin: 03/09/17 21:23 Dose: 10 mg Chlorhexidine Gluconate (Hibiclens For Decolonization -) 1 applic TP [facility] Last Admin: 03/09/17 21:22 Dose: 1 applic Cyclobenzaprine HCl (Flexeril -) 10 mg PO Q8H PRN PRN Reason: MUSCLE SPASMS Stop: 03/10/17 16:45 Dexamethasone Sodium Phosphate (Decadron Injection -) 4 mg IVPUSH ONCE PRN PRN Reason: NAUSEA AND/OR VOMITING Diphenhydramine HCl (Benadryl Injection -) 12.5 mg IVPUSH ONCE PRN PRN Reason: FOR ITCHING Fentanyl (Sublimaze Injection -) 50 mcg IVPUSH [id number] PRN PRN Reason: PAIN Stop: 03/12/17 15:13 Last Admin: 03/09/17 16:25 Dose: 50 mcg Heparin Sodium (Porcine) (Heparin -) 5,000 unit SQ BID [facility] Last Admin: 03/10/17 09:36 Dose: 5,000 unit Hydromorphone HCl (Dilaudid Station Usher -) 0 mg ONLINE MARKETER ONLINE MARKETER [facility] PRN Reason: Protocol Stop: 03/16/17 15:11 Last Admin: 03/09/17 20:22 Dose: Not Given Lactated Ringer's (Lactated Ringers Solution) 1,000 mls @ 125 mls/hr IV ASDIR [facility] Last Admin: 03/09/17 21:21 Dose: 125 mls/hr Cefazolin Sodium/Dextrose (Ancef 2 Gm Premixed Ivpb -) 50 mls @ 100 mls/hr IVPB Q8H-IV [facility] Stop: 03/10/17 16:59 Last Admin: 03/10/17 09:32 Dose: 100 mls/hr Metoprolol Tartrate (Lopressor -) 25 mg PO DAILY [facility] Last Admin: 03/10/17 09:32 Dose: 25 mg Promethazine HCl (Phenergan Injection -) 12.5 mg IVPB Q6H PRN PRN Reason: NAUSEA AND/OR VOMITING ASSESSMENT AND PLAN: Cervical Disc Herniation s/p C3-C7 laminectomies and instrumentation HTN CAD s/p stents Hyperlipidemia - pain control - PO as tolerated - rehab/PT - monitor drain output - DVT prophylaxis - can monitor on floor
--- NOTE | 2017-03-10 12:22 | PN ---
Progress Note (short form) - Note Progress Note: Anesthesia postop note, POD#1. S/P emergency C-spine surgery, stage 1:C4, C5 and C6 Corpectomies, jain of lordosis, reconstruction with a PEEK cage and anterior plating. Stage 2: C3-7 Laminectomies, jain of lordosis, and lateral mass instrumentation. Pat seen and examined. VSS. No post anesthesia complications. Pain well controlled by ACCOUNT SERVICES SPECIALIST, hydromorphone. Continue same dose of ACCOUNT SERVICES SPECIALIST. Will follow up .
--- NOTE | 2017-03-10 12:55 | PN ---
Physical Exam: SUBJECTIVE: Patient seen and examined. s/p cervical laminenctomy patient lying comfortably in bed. Still complains of numbness and tingling sensation in hi arms OBJECTIVE: Vital Signs Period Temp Pulse Resp BP Sys/Hartmann Pulse Ox Last 24 Hr 98.1 F-98.9 F 62-110 11-22 124-182/65-96 95-100 GENERAL: The patient is awake, alert, and fully oriented, in no acute distress. EYES: PERRL, extraocular movements intact, NECK: cervical collar present LUNGS: Breath sounds equal, clear to auscultation bilaterally, no wheezes, no crackles, no accessory muscle use. HEART: s1s2 normal ABDOMEN: Soft, nontender, nondistended, normoactive bowel sounds, no guarding, no rebound, EXTREMITIES: warm, power b/l upper limb 5/5, sensation to fine touch present. NEUROLOGICAL: Cranial nerves II through XII grossly intact. Normal speech, PSYCH: Normal mood, normal affect. SKIN: Warm, dry, Laboratory Results - last 24 hr 03/10/17 03/10/17 05:15 05:15 WBC 14.1 H D RBC 3.90 L Hgb 12.3 D Hct 36.3 D MCV 93.1 MCH 31.5 MCHC 33.8 RDW 13.7 Plt Count 247 MPV 8.3 Sodium 135 L Potassium 4.4 Chloride 99 Carbon Dioxide 30 D Anion Gap 6 L BUN 14 Creatinine 0.8 Random Glucose 132 H D Calcium 8.9 Phosphorus 3.2 Magnesium 1.8 Active Medications Generic Name Dose Route Start Last Admin Trade Name Freq PRN Reason Stop Dose Admin Aspirin 81 mg 03/10/17 10:00 03/10/17 09:35 Asa - PO 81 mg DAILY [facility] Administration Atorvastatin Calcium 10 mg 03/09/17 22:00 03/09/17 21:23 Lipitor - PO 10 mg HS [facility] Administration Chlorhexidine Gluconate 1 applic 03/09/17 22:00 03/09/17 21:22 Hibiclens For Decolonization - TP 1 applic HS [facility] Administration Cyclobenzaprine HCl 10 mg 03/09/17 16:46 Flexeril - PO 03/10/17 16:45 Q8H PRN MUSCLE SPASMS Dexamethasone Sodium Phosphate 4 mg 03/09/17 15:11 Decadron Injection - IVPUSH ONCE PRN NAUSEA AND/OR VOMITING Diphenhydramine HCl 12.5 mg 03/09/17 15:11 Benadryl Injection - IVPUSH ONCE PRN FOR ITCHING Fentanyl 50 mcg 03/09/17 15:12 03/09/17 16:25 Sublimaze Injection - IVPUSH 03/12/17 15:13 50 mcg [id number] PRN Administration PAIN Heparin Sodium (Porcine) 5,000 unit 03/10/17 10:00 03/10/17 09:36 Heparin - SQ 5,000 unit BID [facility] Administration Hydromorphone HCl 0 mg 03/09/17 15:15 03/09/17 20:22 Dilaudid Public Health Aides Teacher - ALLOCATIONS CLERK 03/16/17 15:11 Not Given ALLOCATIONS CLERK [facility] Protocol Lactated Ringer's 1,000 mls @ 125 mls/hr 03/09/17 17:00 03/09/17 21:21 Lactated Ringers Solution IV 125 mls/hr ASDIR [facility] Administration Cefazolin Sodium/Dextrose 50 mls @ 100 mls/hr 03/09/17 17:00 03/10/17 09:32 Ancef 2 Gm Premixed Ivpb - IVPB 03/10/17 16:59 100 mls/hr Q8H-IV [facility] Administration Metoprolol Tartrate 25 mg 03/10/17 10:00 03/10/17 09:32 Lopressor - PO 25 mg DAILY [facility] Administration Promethazine HCl 12.5 mg 03/09/17 15:11 Phenergan Injection - IVPB Q6H PRN NAUSEA AND/OR VOMITING ASSESSMENT/PLAN: Cervical Disc Herniation s/p C3-C7 laminectomies and instrumentation HTN CAD s/p stents Hyperlipidemia Plan - pain control - PO as tolerate - monitor drain output - DVT prophylaxis - on lopressor 25mg po daily - on atorvastain - on heparin for dvt pro Transfer to floor. Visit type - Emergency Visit Emergency Visit: Yes ED Registration Date: 03/08/17 Care time: The patient presented to the Emergency Department on the above date and was hospitalized for further evaluation of their emergent condition. - New Patient This patient is new to me today: Yes Date on this admission: 03/10/17 - Critical Care Critical Care patient: Yes Total Critical Care Time (in minutes): 45 Critical Care Statement: The care of this patient involved high complexity decision making to prevent further life threatening deterioration of the patient 's condition and/or to evaluate & treat vital organ system(s) failure or risk of failure.
[2017-03-10] MEDS ORDERED: HYDROmorphone *PCA* 10MG/50ML DISP.SYRIN PCA ONE (13:22)
[2017-03-10] MEDS: HYDROmorphone *PCA* 10MG/50ML DISP.SYRIN PCA SCH ×2 (13:24→17:31)
[2017-03-10] MEDS ORDERED: DEXAMETHASONE SOD PHOSPHATE 4 MG/1 ML VIAL IVPUSH PRN (13:52)
[2017-03-10] MEDS ORDERED: CYCLOBENZAPRINE HCL 10 MG TABLET (FP) PO PRN (13:52)
[2017-03-10] MEDS ORDERED: PROMETHAZINE HCL 25 MG/1 ML VIAL IVPB PRN (13:52)
[2017-03-10] MEDS ORDERED: LACTATED RINGERS SOLUTION 1,000 ML IV SCH (13:52)
--- NOTE | 2017-03-10 15:37 | PN ---
Progress Note (short form) - Note Progress Note: Patient is doing well one day after circumferential cervical decompression and fusion. Dressings are clean, dry and intact. BRIANNA drainages are 70 & 80 cc overnight. Will leave for at least one more night. Patient moving all extremities with full power. Left hand paresthesias persist, however, should deniz with time. CT shows hardware in good position. Agree with PT and transfer to floor.
[2017-03-10] MEDS ORDERED: ZOLPIDEM TARTRATE 5 MG TABLET PO ONE ×2 (19:43→22:15)
[2017-03-10] MEDS ORDERED: DOCUSATE SODIUM 100 MG CAPSULE (FP) PO SCH (22:00)
[2017-03-10] MEDS: POLYETHYLENE GLYCOL 3350 119 GM BTL PO SCH (22:26)
[2017-03-10] MEDS: DOCUSATE SODIUM 100 MG CAPSULE (FP) PO SCH (22:26)
[2017-03-10] MEDS: HEPARIN NA (PORCINE) 5,000 UNITS/ML 1ML VIAL SQ SCH (22:27)
[2017-03-10] MEDS: CHLORHEXIDINE GLUCONATE 4% CLEANSER FOR DECOLONIZATION TP SCH (22:27)
[2017-03-10] MEDS: ATORVASTATIN CA 10 MG TABLET (FP) PO SCH (22:27)
[2017-03-11] MEDS: CEFAZOLIN 2 GM/D5W 50 ML IVPB SCH ×2 (01:06→09:47)
[2017-03-11 06:02] LABS: BASOPHIL 0.2 % (0-2.0); EOSINOPHIL 0.3 % (0-4.5); MCH 31.9 pg (25.7-33.7); MCHC 34.1 g/dl (32.0-35.9); MEAN CELL VOLUME 93.6 fl (80-96); MEAN PLT VOLUME 8.7 fl (7.5-11.1); NEUTROPHILS 78.1 % (42.8-82.8); PLATELET COUNT 229 K/MM3 (134-434); RDW 13.7 % (11.9-15.9); WHITE BLOOD COUNT 11.4 K/mm3 (4.0-10.0)
[2017-03-11 06:27] LABS: ANION GAP 7 (8-16); CALCIUM 8.6 mg/dL (8.5-10.1); CO2 33 mmol/L (21-32); CREATININE 0.8 mg/dL (0.7-1.3); GLUCOSE,RANDOM 103 mg/dL (74-106); MAGNESIUM 1.9 mg/dL (1.8-2.4)
--- NOTE | 2017-03-11 07:46 | PN ---
Physical Exam: 24H: No acute events SUBJECTIVE: Patient seen and examined in ICU. Tingling in hands has improved. Denies any pain. Continues to have mild difficulty and discomfort eating solid food. OBJECTIVE: Vital Signs Period Temp Pulse Resp BP Sys/Hartmann Pulse Ox Last 24 Hr 98.1 F-98.5 F 58-87 11-22 130-170/67-88 98 Intake & Output 03/08/17 03/09/17 03/10/17 03/11/17 23:59 23:59 23:59 23:59 Intake Total 2450 1900 1800 Output Total 1170 2510 645 Balance 1280 -610 1155 Weight 90.718 kg GENERAL: The patient is awake, alert, and fully oriented, in no acute distress. NECK: cervical collar present, BRIANNA with serosanginous drainage LUNGS: decreased breath sounds at bases HEART: RRR, normal s1,s2 ABDOMEN: Soft, ntnd EXTREMITIES: no edema, wwp, strength UE sensation to light touch symmetrically intact, 5/5 strength in all extremities NEUROLOGICAL: CN grossly intact, not formally tested Laboratory Results - last 24 hr 03/11/17 03/11/17 05:00 05:00 WBC 11.4 H RBC 3.78 L Hgb 12.0 Hct 35.3 L MCV 93.6 MCH 31.9 MCHC 34.1 RDW 13.7 Plt Count 229 MPV 8.7 Neutrophils % 78.1 D Lymphocytes % 11.1 D Monocytes % 10.3 H Eosinophils % 0.3 D Basophils % 0.2 Sodium 136 Potassium 4.5 Chloride 96 L Carbon Dioxide 33 H Anion Gap 7 L BUN 11 D Creatinine 0.8 Random Glucose 103 D Calcium 8.6 Phosphorus 3.0 Magnesium 1.9 Active Medications Aspirin (Asa -) 81 mg PO DAILY [facility] Atorvastatin Calcium (Lipitor -) 10 mg PO [facility] Last Admin: 03/10/17 22:27 Dose: 10 mg Chlorhexidine Gluconate (Hibiclens For Decolonization -) 1 applic TP [facility] Last Admin: 03/10/17 22:27 Dose: 1 applic Dexamethasone Sodium Phosphate (Decadron Injection -) 4 mg IVPUSH ONCE PRN PRN Reason: NAUSEA AND/OR VOMITING Diphenhydramine HCl (Benadryl Injection -) 12.5 mg IVPUSH ONCE PRN PRN Reason: FOR ITCHING Docusate Sodium (Colace -) 300 mg PO HS [facility] Last Admin: 03/10/17 22:26 Dose: 300 mg Fentanyl (Sublimaze Injection -) 50 mcg IVPUSH [id number] PRN PRN Reason: PAIN Stop: 03/12/17 15:13 Heparin Sodium (Porcine) (Heparin -) 5,000 unit SQ BID [facility] Last Admin: 03/10/17 22:27 Dose: 5,000 unit Hydromorphone HCl (Dilaudid Appeals Nurse -) 10 mg DESILVERIZER DESILVERIZER [facility]ONILA PRN Reason: Protocol Stop: 03/16/17 15:11 Last Admin: 03/10/17 17:31 Dose: Not Given Cefazolin Sodium/Dextrose (Ancef 2 Gm Premixed Ivpb -) 50 mls @ 100 mls/hr IVPB Q8H-IV [facility] PRN Reason: Protocol Stop: 03/11/17 17:59 Last Admin: 03/11/17 01:06 Dose: 100 mls/hr Lactated Ringer's (Lactated Ringers Solution) 1,000 mls @ 125 mls/hr IV ASDIR [facility] Last Admin: 03/10/17 17:31 Dose: Not Given Metoprolol Tartrate (Lopressor -) 25 mg PO DAILY [facility] Polyethylene Glycol (Miralax (For Daily Use) -) 17 gm PO DAILY [facility] Last Admin: 03/10/17 22:26 Dose: 17 gm Promethazine HCl (Phenergan Injection -) 12.5 mg IVPB Q6H PRN PRN Reason: NAUSEA AND/OR VOMITING ASSESSMENT/PLAN: 66yo M with PMH HTN, HLD, CAD s/p stents, POD#2 s/p circumferential cervical decompression and fusion (C3-C7) who is doing well post op and can be transferred to Med/Surg. #Neuro -Pain control -Monitor BRIANNA drain #Pulm -Incentive spirometry #CV -Continue home atorvastatin 10mg hs, metoprolol 25mg, ASA 81 #FEN -No IVF -Monitor lytes -Regular diet as tolerated #PPX -DVT - Heparin 5000U SQ BID -GI ppx not indicated #Dispo: Transfer to Med/Surg d/w Dr. Daniela Puentes, PGY-1 Visit type - Emergency Visit Emergency Visit: No - New Patient This patient is new to me today: Yes Date on this admission: 03/11/17 - Critical Care Critical Care patient: Yes Total Critical Care Time (in minutes): 35 Critical Care Statement: The care of this patient involved high complexity decision making to prevent further life threatening deterioration of the patient 's condition and/or to evaluate & treat vital organ system(s) failure or risk of failure.
--- NOTE | 2017-03-11 08:47 | PN ---
Progress Note, Physician Chief Complaint: TELE: NSR History of Present Illness: no chest pain or SOB - Current Medication List Current Medications: Active Medications Aspirin (Asa -) 81 mg PO DAILY [facility] Atorvastatin Calcium (Lipitor -) 10 mg PO [facility] Last Admin: 03/10/17 22:27 Dose: 10 mg Chlorhexidine Gluconate (Hibiclens For Decolonization -) 1 applic TP [facility] Last Admin: 03/10/17 22:27 Dose: 1 applic Dexamethasone Sodium Phosphate (Decadron Injection -) 4 mg IVPUSH ONCE PRN PRN Reason: NAUSEA AND/OR VOMITING Diphenhydramine HCl (Benadryl Injection -) 12.5 mg IVPUSH ONCE PRN PRN Reason: FOR ITCHING Docusate Sodium (Colace -) 300 mg PO [facility] Last Admin: 03/10/17 22:26 Dose: 300 mg Fentanyl (Sublimaze Injection -) 50 mcg IVPUSH [id number] PRN PRN Reason: PAIN Stop: 03/12/17 15:13 Heparin Sodium (Porcine) (Heparin -) 5,000 unit SQ BID [facility] Last Admin: 03/10/17 22:27 Dose: 5,000 unit Hydromorphone HCl (Dilaudid Coating Technician -) 10 mg TILE MOLDER HAND TILE MOLDER HAND [facility] PRN Reason: Protocol Stop: 03/16/17 15:11 Last Admin: 03/10/17 17:31 Dose: Not Given Cefazolin Sodium/Dextrose (Ancef 2 Gm Premixed Ivpb -) 50 mls @ 100 mls/hr IVPB Q8H-IV [facility] PRN Reason: Protocol Stop: 03/11/17 17:59 Last Admin: 03/11/17 01:06 Dose: 100 mls/hr Lactated Ringer's (Lactated Ringers Solution) 1,000 mls @ 125 mls/hr IV ASDIR [facility] Last Admin: 03/10/17 17:31 Dose: Not Given Metoprolol Tartrate (Lopressor -) 25 mg PO DAILY [facility] Polyethylene Glycol (Miralax (For Daily Use) -) 17 gm PO DAILY [facility] Last Admin: 03/10/17 22:26 Dose: 17 gm Promethazine HCl (Phenergan Injection -) 12.5 mg IVPB Q6H PRN PRN Reason: NAUSEA AND/OR VOMITING - Objective Vital Signs: Vital Signs Temperature 98.1 F 03/11/17 06:00 Pulse Rate 70 03/11/17 06:00 Respiratory Rate 13 03/11/17 06:00 Blood Pressure 164/88 03/11/17 06:00 O2 Sat by Pulse Oximetry (%) 98 03/11/17 07:30 Constitutional: Yes: No Distress Eyes: Yes: Conjunctiva Clear Cardiovascular: Yes: Regular Rate and Rhythm Respiratory: Yes: CTA Bilaterally Gastrointestinal: Yes: Soft Edema: No Labs: CBC, BMP 03/11/17 05:00 03/11/17 05:00 INR, PTT INR 1.10 (0.82-1.09) 03/09/17 06:30 Laboratory Tests 03/11/17 03/11/17 05:00 05:00 WBC 11.4 H Hgb 12.0 Plt Count 229 Sodium 136 Potassium 4.5 BUN 11 D Creatinine 0.8 Magnesium 1.9 Assessment/Plan Assessment/Plan Cervical radiculopathy due to moderate disc herniations at C3/4/5/6 now POD #1 Spinal stenosis CAD w/ remote inferior [place] and PCI, recent stress test with old infarct and no sig ischemia REC: Tolerated surgery well. Continue current meds including beta niko. Aspirin resumed. BP slightly above goal, will add low dose amlodipine for now and observe BP trend.
[2017-03-11] MEDS: ASPIRIN 81 MG CHEWABLE TABLETS PO SCH (09:46)
[2017-03-11] MEDS: amLODIPine BESYLATE 5 MG TABLET (FP) PO SCH (09:46)
[2017-03-11] MEDS: METOPROLOL TARTRATE 25 MG TABLET (FP) PO SCH (09:46)
[2017-03-11] MEDS: POLYETHYLENE GLYCOL 3350 119 GM BTL PO SCH (09:48)
[2017-03-11] MEDS: HEPARIN NA (PORCINE) 5,000 UNITS/ML 1ML VIAL SQ SCH ×2 (09:50→21:53)
--- NOTE | 2017-03-11 10:43 | PN ---
Progress Note (short form) - Note Progress Note: Anesthesiology Pain Service POD#2 s/p ant/post cervical decompression under GA with post-op ADZING AND BORING MACHINE HELPER. Pt. sleeping comfortably in ICU. Hemodynamically stable. C/O some mild discomfort in the throat but otherwise no complaints. Still using ADZING AND BORING MACHINE HELPER regularly. Will continue ADZING AND BORING MACHINE HELPER for now.
--- NOTE | 2017-03-11 12:31 | PN ---
Teaching Attending Note Name of Resident: Loly Puentes ATTENDING PHYSICIAN STATEMENT I saw and evaluated the patient. I reviewed the resident's note and discussed the case with the resident. I agree with the resident's findings and plan as documented. SUBJECTIVE: Patient seen and examined in the ICU. POD #1 C3-C7 laminectomy. Some improvement in his numbness and tingling in his hands. No reported weakness. Some mild difficulty with swallowing some solids this AM. OBJECTIVE: Intake & Output 03/08/17 03/09/17 03/10/17 03/11/17 23:59 23:59 23:59 23:59 Intake Total 2450 1900 2100 Output Total 1170 2510 645 Balance 1280 -610 1455 Weight 200 lb 197 lb 7 oz Last Vital Signs Temp Pulse Resp BP Pulse Ox 98.8 F 81 19 186/88 98 03/11/17 10:00 03/11/17 12:00 03/11/17 12:00 03/11/17 12:00 03/11/17 07:30 Active Medications Amlodipine Besylate (Norvasc -) 5 mg PO DAILY [facility] Last Admin: 03/11/17 09:46 Dose: 5 mg Aspirin (Asa -) 81 mg PO DAILY [facility] Last Admin: 03/11/17 09:46 Dose: 81 mg Atorvastatin Calcium (Lipitor -) 10 mg PO [facility] Last Admin: 03/10/17 22:27 Dose: 10 mg Chlorhexidine Gluconate (Hibiclens For Decolonization -) 1 applic TP [facility] Last Admin: 03/10/17 22:27 Dose: 1 applic Dexamethasone Sodium Phosphate (Decadron Injection -) 4 mg IVPUSH ONCE PRN PRN Reason: NAUSEA AND/OR VOMITING Diphenhydramine HCl (Benadryl Injection -) 12.5 mg IVPUSH ONCE PRN PRN Reason: FOR ITCHING Docusate Sodium (Colace -) 300 mg PO [facility] Last Admin: 03/10/17 22:26 Dose: 300 mg Fentanyl (Sublimaze Injection -) 50 mcg IVPUSH [id number] PRN PRN Reason: PAIN Stop: 03/12/17 15:13 Heparin Sodium (Porcine) (Heparin -) 5,000 unit SQ BID [facility] Last Admin: 03/11/17 09:50 Dose: 5,000 unit Hydromorphone HCl (Dilaudid Bowling Alley Refinisher -) 10 mg FIREPROOF DOOR MAKER FIREPROOF DOOR MAKER LEONILA PRN Reason: Protocol Stop: 03/16/17 15:11 Last Admin: 03/10/17 17:31 Dose: Not Given Cefazolin Sodium/Dextrose (Ancef 2 Gm Premixed Ivpb -) 50 mls @ 100 mls/hr IVPB Q8H-IV LEONILA PRN Reason: Protocol Stop: 03/11/17 17:59 Last Admin: 03/11/17 09:47 Dose: 100 mls/hr Lactated Ringer's (Lactated Ringers Solution) 1,000 mls @ 125 mls/hr IV ASDIR [facility] Last Admin: 03/10/17 17:31 Dose: Not Given Metoprolol Tartrate (Lopressor -) 25 mg PO DAILY [facility] Last Admin: 03/11/17 09:46 Dose: 25 mg Polyethylene Glycol (Miralax (For Daily Use) -) 17 gm PO DAILY [facility] Last Admin: 03/11/17 09:48 Dose: 17 gm Promethazine HCl (Phenergan Injection -) 12.5 mg IVPB Q6H PRN PRN Reason: NAUSEA AND/OR VOMITING Gen: NAD in C-collar, +BRIANNA with serosanguinous drainage Heart: RRR Lung: decreased breath sounds at the bases Abd: soft, nontender Ext: no edema Laboratory Results - last 24 hr 03/09/17 03/11/17 03/11/17 06:30 05:00 05:00 WBC 11.4 H RBC 3.78 L Hgb 12.0 Hct 35.3 L MCV 93.6 MCH 31.9 MCHC 34.1 RDW 13.7 Plt Count 229 MPV 8.7 Neutrophils % 78.1 D Lymphocytes % 11.1 D Monocytes % 10.3 H Eosinophils % 0.3 D Basophils % 0.2 Sodium 139 136 Potassium 4.3 4.5 Chloride 106 96 L Carbon Dioxide 23 33 H Anion Gap 12 7 L BUN 14 11 D Creatinine 0.9 0.8 Random Glucose 94 103 D Calcium 8.8 8.6 Phosphorus 3.4 3.0 Magnesium 2.1 1.9 Triglycerides 178 H Cholesterol 141 D Total LDL Cholesterol 83 HDL Cholesterol 39 L D ASSESSMENT AND PLAN: Cervical Disc Herniation C3-C7 laminectomies and instrumentation HTN CAD s/p stents Hyperlipidemia - Incentive Spirometry - pain control - PO as tolerated - rehab/PT - monitor drain output - DVT prophylaxis - Floor Dr Suarez
--- NOTE | 2017-03-11 13:07 | PN ---
Progress Note (short form) - Note Progress Note: POD#2 Pt states that the burning sensation to his left hand has improved, it remains numb. With swallowing more solid food he had some difficulty and did cough up some partials of food. His BRIANNA fell out yesterday. Voiding without difficulty. Vital Signs Period Temp Pulse Resp BP Sys/Hartmann Pulse Ox Last 24 Hr 98.1 F-98.8 F 58-85 11-20 130-186/69-88 98 BRIANNA: 175ml GEN: appears comfortable Neck: anterior dressing changed. inc c/d/i with dermabond. No swelling/ ecchymosis Posterior Neck: aquacel in place and BRIANNA-serosangrenous LE: SCDs in place Neuro: moving all extremities without difficultly CBC, BMP // 05:00 03/11/17 05:00 A/P: 66 yo male s/p C4, C5 and C6 Corpectomies, pentecostal of lordosis, reconstruction with a PEEK cage and anterior plating. Stage 2:C3-7 Laminectomies, pentecostal of lordosis, and lateral mass instrumentation. discontinue IV fluids, tolerating clears change to full liquids pain management with dilaudid TAG MARKER OOB and ambulate with PT DVT ppx with heparin SQ/SCDs
[2017-03-11] MEDS: HYDROmorphone *PCA* 10MG/50ML DISP.SYRIN PCA SCH (16:19)
--- NOTE | 2017-03-11 18:15 | PN ---
Progress Note (short form) - Note Progress Note: Subjective: The patient was seen and examined at the bedside, he reports having a dry throat He reports improvement in his b/l fingertip tingling and numbness Difficulty swallowing this morning, Current Medications Generic Name Dose Route Start Last Admin Trade Name Jlq PRN Reason Stop Dose Admin Amlodipine Besylate 5 mg 03/11/17 10:00 03/11/17 09:46 Norvasc - PO 5 mg DAILY LEONILA Administration Aspirin 81 mg 03/11/17 10:00 03/11/17 09:46 Asa - PO 81 mg DAILY LEONILA Administration Atorvastatin Calcium 10 mg 03/10/17 22:00 03/10/17 22:27 Lipitor - PO 10 mg HS LEONILA Administration Chlorhexidine Gluconate 1 applic 03/10/17 22:00 03/10/17 22:27 Hibiclens For Decolonization - TP 1 applic HS LEONILA Administration Dexamethasone Sodium Phosphate 4 mg 03/10/17 13:52 Decadron Injection - IVPUSH ONCE PRN NAUSEA AND/OR VOMITING Diphenhydramine HCl 12.5 mg 03/10/17 13:52 Benadryl Injection - IVPUSH ONCE PRN FOR ITCHING Docusate Sodium 300 mg 03/10/17 22:00 03/10/17 22:26 Colace - PO 300 mg HS LEONILA Administration Fentanyl 50 mcg 03/10/17 13:52 Sublimaze Injection - IVPUSH 03/12/17 15:13 [id number] PRN PAIN Heparin Sodium (Porcine) 5,000 unit 03/10/17 22:00 03/11/17 09:50 Heparin - SQ 5,000 unit BID LENOILA Administration Hydromorphone HCl 10 mg 03/10/17 13:52 03/11/17 16:19 Dilaudid Smooth And Burr Worker Composites - PACK ROOM OPERATOR 03/16/17 15:11 10 mg PACK ROOM OPERATOR LEONILA Administration Protocol Cefazolin Sodium/Dextrose 50 mls @ 100 mls/hr 03/10/17 18:00 03/11/17 09:47 Ancef 2 Gm Premixed Ivpb - IVPB 03/11/17 17:59 100 mls/hr Q8H-IV LEONILA Administration Protocol Metoprolol Tartrate 25 mg 03/11/17 10:00 03/11/17 09:46 Lopressor - PO 25 mg DAILY LEONILA Administration Polyethylene Glycol 17 gm 03/10/17 20:15 03/11/17 09:48 Miralax (For Daily Use) - PO 17 gm DAILY LEONILA Administration Promethazine HCl 12.5 mg 03/10/17 13:52 Phenergan Injection - IVPB Q6H PRN NAUSEA AND/OR VOMITING Objective: Vital Signs Period Temp Pulse Resp BP Sys/Hartmann Pulse Ox Last 24 Hr 98.1 F-98.8 F 58-85 11-19 135-186/69-88 98 Physical Exam: General: NAD, A&Ox3. hoarse, weak voice HEENT: C-collar in place, +BRIANNA with serosanguinous drainage Lungs: CTA bilaterally Heart: RRR, S1S2 Abd: Soft, non-tender, non-distended. Normoactive bowel sounds Ext: Warm, well-perfused. 2+ DP/PT bilaterally CBCD WBC 11.4 K/mm3 (4.0-10.0) H 03/11/17 05:00 RBC 3.78 M/mm3 (4.00-5.60) L 03/11/17 05:00 Hgb 12.0 GM/dL (11.7-16.9) 03/11/17 05:00 Hct 35.3 % (35.4-49) L 03/11/17 05:00 MCV 93.6 fl (80-96) 03/11/17 05:00 MCHC 34.1 g/dl (32.0-35.9) 03/11/17 05:00 RDW 13.7 % (11.9-15.9) 03/11/17 05:00 Plt Count 229 K/MM3 (134-434) 03/11/17 05:00 MPV 8.7 fl (7.5-11.1) 03/11/17 05:00 CMP Sodium 136 mmol/L (136-145) 03/11/17 05:00 Potassium 4.5 mmol/L (3.5-5.1) 03/11/17 05:00 Chloride 96 mmol/L (98-107) L 03/11/17 05:00 Carbon Dioxide 33 mmol/L (21-32) H 03/11/17 05:00 Anion Gap 7 (8-16) L 03/11/17 05:00 BUN 11 mg/dL (7-18) D 03/11/17 05:00 Creatinine 0.8 mg/dL (0.7-1.3) 03/11/17 05:00 Creat Clearance w eGFR > 60 (>60) 03/08/17 11:42 Random Glucose 103 mg/dL (74-106) D 03/11/17 05:00 Calcium 8.6 mg/dL (8.5-10.1) 03/11/17 05:00 Total Bilirubin 0.2 mg/dL (0.2-1.0) 03/08/17 11:42 AST 22 U/L (15-37) 03/08/17 11:42 ALT 34 U/L (12-78) D 03/08/17 11:42 Alkaline Phosphatase 66 U/L (45-117) D 03/08/17 11:42 Total Protein 7.0 g/dl (6.4-8.2) 03/08/17 11:42 Albumin 3.8 g/dl (3.4-5.0) 03/08/17 11:42 CARDIAC ENZYMES Creatine Kinase 390 IU/L (39-308) H 03/08/17 11:50 Troponin I 0.06 ng/ml (0.00-0.05) H 03/09/17 01:00 Assessment: This is a 66 year old male with PMHx of HTN, hyperlipidemia, CAD ( [place] s/p stents), prostate cancer s/p radical prostatectomy (2013), admitted for C3-C4, C5-C6 cervical disc herniation Plan: 1) Neurosurgery: C3-C4, C5-C6 disc herniation, cervical spinal stenosis - POD#2: Stage 1 C4, C5 and C6 Corpectomies, pentecostal of lordosis, reconstruction with a PEEK cage and anterior plating. Stage 2 C3-7 Laminectomies , pentecostal of lordosis, and lateral mass instrumentation - BRIANNA drains with serosangeous drainage - Improving b/l fingertip parasthesias - Pain management: on PACK ROOM OPERATOR - Patient reports difficulty swallowing today, f/u swallow evaluation - PT: Walked 35 ft today, reeval tomorrow - Appreciate neurosurgical consult 2) Cardiology: HTN - Continue Lopressor - Norvasc added today as BP above goal Hyperlipidemia - Continue Lipitor CAD s/p remote stents - Continue ASA 3) F/E/N: - Full liquid diet - Monitor electrolytes 4) Prophylaxis: - Heparin 5,000u sq bid - PT 5) Dispo: - Will likely need SNF based on PT evaluations, reevaluate tomorrow and then decide upon discharge plan CODE STATUS: FULL CODE Visit type - Emergency Visit Emergency Visit: Yes ED Registration Date: 03/08/17 Care time: The patient presented to the Emergency Department on the above date and was hospitalized for further evaluation of their emergent condition. - New Patient This patient is new to me today: Yes Date on this admission: 03/12/17 - Critical Care Critical Care patient: No
[2017-03-11] MEDS: ATORVASTATIN CA 10 MG TABLET (FP) PO SCH (21:52)
[2017-03-11] MEDS: DOCUSATE SODIUM 100 MG CAPSULE (FP) PO SCH (21:52)
[2017-03-11] MEDS: CHLORHEXIDINE GLUCONATE 4% CLEANSER FOR DECOLONIZATION TP SCH (21:53)
--- NOTE | 2017-03-12 08:32 | PN ---
Progress Note, Physician Chief Complaint: no chest pain or SOB - Current Medication List Current Medications: Active Medications Amlodipine Besylate (Norvasc -) 5 mg PO DAILY [facility] Last Admin: 03/11/17 09:46 Dose: 5 mg Aspirin (Asa -) 81 mg PO DAILY [facility] Last Admin: 03/11/17 09:46 Dose: 81 mg Atorvastatin Calcium (Lipitor -) 10 mg PO [facility] Last Admin: 03/11/17 21:52 Dose: 10 mg Chlorhexidine Gluconate (Hibiclens For Decolonization -) 1 applic TP [facility] Last Admin: 03/11/17 21:53 Dose: Not Given Dexamethasone Sodium Phosphate (Decadron Injection -) 4 mg IVPUSH ONCE PRN PRN Reason: NAUSEA AND/OR VOMITING Diphenhydramine HCl (Benadryl Injection -) 12.5 mg IVPUSH ONCE PRN PRN Reason: FOR ITCHING Docusate Sodium (Colace -) 300 mg PO [facility] Last Admin: 03/11/17 21:52 Dose: 300 mg Fentanyl (Sublimaze Injection -) 50 mcg IVPUSH [id number] PRN PRN Reason: PAIN Stop: 03/12/17 15:13 Heparin Sodium (Porcine) (Heparin -) 5,000 unit SQ BID [facility] Last Admin: 03/11/17 21:53 Dose: 5,000 unit Hydromorphone HCl (Dilaudid Multiple Effect Evaporator Operator -) 10 mg FREIGHT CONDUCTOR FREIGHT CONDUCTOR [facility] PRN Reason: Protocol Stop: 03/16/17 15:11 Last Admin: 03/11/17 16:19 Dose: 10 mg Metoprolol Tartrate (Lopressor -) 25 mg PO DAILY [facility] Last Admin: 03/11/17 09:46 Dose: 25 mg Polyethylene Glycol (Miralax (For Daily Use) -) 17 gm PO DAILY [facility] Last Admin: 03/11/17 09:48 Dose: 17 gm Promethazine HCl (Phenergan Injection -) 12.5 mg IVPB Q6H PRN PRN Reason: NAUSEA AND/OR VOMITING - Objective Vital Signs: Vital Signs Temperature 97.4 F L 03/12/17 05:44 Pulse Rate 88 03/12/17 05:44 Respiratory Rate 20 03/12/17 05:44 Blood Pressure 160/98 03/12/17 05:44 O2 Sat by Pulse Oximetry (%) 98 03/11/17 21:00 Constitutional: Yes: No Distress, Calm Cardiovascular: Yes: Regular Rate and Rhythm Respiratory: Yes: CTA Bilaterally Gastrointestinal: Yes: Soft Edema: No Neurological: Yes: Alert, Oriented Labs: INR, PTT INR 1.10 (0.82-1.09) 03/09/17 06:30 Laboratory Tests 03/11/17 03/12/17 03/12/17 05:00 07:30 07:30 WBC Pending Hct Pending Plt Count Pending Sodium 136 Potassium Pending Creatinine 0.8 Pending Assessment/Plan Assessment/Plan Cervical radiculopathy due to moderate disc herniations at C3/4/5/6 now POD #1 Spinal stenosis CAD w/ remote inferior PR and PCI, recent stress test with old infarct and no sig ischemia REC: Tolerated surgery well. Continue current meds including beta niko. Aspirin resumed. BP remains slightly above goal, continue amlodipine and consider titrating to 10mg if BP remains consistently > 140-150/90. He may not need it superintendent terminal as BP is likely elevated above baseline in the post op setting due to anxiety over wearing the collar and some post op discomfort.
[2017-03-12 08:55] LABS: BASOPHIL 0.2 % (0-2.0); EOSINOPHIL 0.5 % (0-4.5); MCHC 33.5 g/dl (32.0-35.9); MEAN CELL VOLUME 92.5 fl (80-96); MEAN PLT VOLUME 8.7 fl (7.5-11.1); PLATELET COUNT 248 K/MM3 (134-434); RDW 13.4 % (11.9-15.9); WHITE BLOOD COUNT 10.8 K/mm3 (4.0-10.0)
[2017-03-12] MEDS: HEPARIN NA (PORCINE) 5,000 UNITS/ML 1ML VIAL SQ SCH ×2 (09:07→21:10)
[2017-03-12] MEDS: METOPROLOL TARTRATE 25 MG TABLET (FP) PO SCH (09:07)
[2017-03-12] MEDS: amLODIPine BESYLATE 5 MG TABLET (FP) PO SCH (09:07)
[2017-03-12] MEDS: ASPIRIN 81 MG CHEWABLE TABLETS PO SCH (09:07)
--- NOTE | 2017-03-12 09:14 | PN ---
Progress Note (short form) - Note Progress Note: Patient is resting comfortably and reports that paresthesias are slowly abating. Dressings are clean, dry and intact. BRIANNA drainage was 30 cc in 24 hours. Will d/c drain and will try to convert LINE HAUL DRIVER to oral pain regimen and continue Physical Therapy. Will consider discharge planning over the next few days.
[2017-03-12 09:33] LABS: ALBUMIN 3.6 g/dl (3.4-5.0); ANION GAP 12 (8-16); CO2 28 mmol/L (21-32); GLUCOSE,RANDOM 101 mg/dL (74-106); SGPT/ALT 34 U/L (12-78)
[2017-03-12 09:37] LABS: ALK PHOS 60 U/L (45-117); BILIRUBIN,TOTAL 0.5 mg/dL (0.2-1.0); CALCIUM 9.6 mg/dL (8.5-10.1); CREATININE 0.7 mg/dL (0.7-1.3); SGOT/AST 34 U/L (15-37); TOT PROT 7.1 g/dl (6.4-8.2)
--- NOTE | 2017-03-12 09:41 | PN ---
Progress Note (short form) - Note Progress Note: Subjective: The patient was seen and examined at the bedside, he reports he would like to get up and walk with PT BRIANNA drain with 115cc Current Medications Generic Name Dose Route Start Last Admin Trade Name Freq PRN Reason Stop Dose Admin Amlodipine Besylate 5 mg 03/11/17 10:00 03/11/17 09:46 Norvasc - PO 5 mg DAILY LEONILA Administration Aspirin 81 mg 03/11/17 10:00 03/11/17 09:46 Asa - PO 81 mg DAILY LEONILA Administration Atorvastatin Calcium 10 mg 03/10/17 22:00 03/11/17 21:52 Lipitor - PO 10 mg HS LEONILA Administration Chlorhexidine Gluconate 1 applic 03/10/17 22:00 03/11/17 21:53 Hibiclens For Decolonization - TP Not Given HS LEONILA Dexamethasone Sodium Phosphate 4 mg 03/10/17 13:52 Decadron Injection - IVPUSH ONCE PRN NAUSEA AND/OR VOMITING Diphenhydramine HCl 12.5 mg 03/10/17 13:52 Benadryl Injection - IVPUSH ONCE PRN FOR ITCHING Docusate Sodium 300 mg 03/10/17 22:00 03/11/17 21:52 Colace - PO 300 mg HS LEONILA Administration Fentanyl 50 mcg 03/10/17 13:52 Sublimaze Injection - IVPUSH 03/12/17 15:13 [id number] PRN PAIN Heparin Sodium (Porcine) 5,000 unit 03/10/17 22:00 03/11/17 21:53 Heparin - SQ 5,000 unit BID LEONILA Administration Hydromorphone HCl 10 mg 03/10/17 13:52 03/11/17 16:19 Dilaudid Regulatory Compliance Specialist - WOOD ROUTER 03/16/17 15:11 10 mg WOOD ROUTER LEONILA Administration Protocol Metoprolol Tartrate 25 mg 03/11/17 10:00 03/11/17 09:46 Lopressor - PO 25 mg DAILY LEONILA Administration Polyethylene Glycol 17 gm 03/10/17 20:15 03/11/17 09:48 Miralax (For Daily Use) - PO 17 gm DAILY LEONILA Administration Promethazine HCl 12.5 mg 03/10/17 13:52 Phenergan Injection - IVPB Q6H PRN NAUSEA AND/OR VOMITING Objective: Vital Signs Period Temp Pulse Resp BP Sys/Hartmann Pulse Ox Last 24 Hr 97.4 F-98.8 F 63-92 12-20 147-186/69-98 98 Physical Exam: General: NAD, A&Ox3. hoarse, weak voice HEENT: C-collar in place, +BRIANNA with serosanguinous drainage Lungs: CTA bilaterally Heart: RRR, S1S2 Abd: Soft, non-tender, non-distended. Normoactive bowel sounds Ext: Warm, well-perfused. 2+ DP/PT bilaterally CBCD WBC 10.8 K/mm3 (4.0-10.0) H 03/12/17 07:30 RBC 4.26 M/mm3 (4.00-5.60) 03/12/17 07:30 Hgb 13.2 GM/dL (11.7-16.9) 03/12/17 07:30 Hct 39.4 % (35.4-49) 03/12/17 07:30 MCV 92.5 fl (80-96) 03/12/17 07:30 MCHC 33.5 g/dl (32.0-35.9) 03/12/17 07:30 RDW 13.4 % (11.9-15.9) 03/12/17 07:30 Plt Count 248 K/MM3 (134-434) 03/12/17 07:30 MPV 8.7 fl (7.5-11.1) 03/12/17 07:30 CMP Sodium 134 mmol/L (136-145) L 03/12/17 07:30 Potassium 3.9 mmol/L (3.5-5.1) 03/12/17 07:30 Chloride 94 mmol/L (98-107) L 03/12/17 07:30 Carbon Dioxide 28 mmol/L (21-32) 03/12/17 07:30 Anion Gap 12 (8-16) 03/12/17 07:30 BUN 10 mg/dL (7-18) 03/12/17 07:30 Creatinine 0.7 mg/dL (0.7-1.3) 03/12/17 07:30 Creat Clearance w eGFR > 60 (>60) 03/12/17 07:30 Random Glucose 101 mg/dL (74-106) 03/12/17 07:30 Calcium 9.6 mg/dL (8.5-10.1) 03/12/17 07:30 Total Bilirubin 0.5 mg/dL (0.2-1.0) D 03/12/17 07:30 AST 34 U/L (15-37) D 03/12/17 07:30 ALT 34 U/L (12-78) 03/12/17 07:30 Alkaline Phosphatase 60 U/L (45-117) 03/12/17 07:30 Total Protein 7.1 g/dl (6.4-8.2) 03/12/17 07:30 Albumin 3.6 g/dl (3.4-5.0) 03/12/17 07:30 CARDIAC ENZYMES Creatine Kinase 390 IU/L (39-308) H 03/08/17 11:50 Troponin I 0.06 ng/ml (0.00-0.05) H 03/09/17 01:00 Assessment: This is a 66 year old male with PMHx of HTN, hyperlipidemia, CAD ( [place] s/p stents), prostate cancer s/p radical prostatectomy (2013), admitted for C3-C4, C5-C6 cervical disc herniation Plan: 1) Neurosurgery: C3-C4, C5-C6 disc herniation, cervical spinal stenosis - POD#3: Stage 1 C4, C5 and C6 Corpectomies, hoahaoism of lordosis, reconstruction with a PEEK cage and anterior plating. Stage 2 C3-7 Laminectomies , hoahaoism of lordosis, and lateral mass instrumentation - BRIANNA drain with serosangeous drainage - Improving b/l fingertip parasthesias, improving more on the right - Pain management: on WOOD ROUTER - Swallow evaluation pending - PT: reevaluation - Appreciate neurosurgical consult 2) Cardiology: HTN - Continue Lopressor - Norvasc added today as BP above goal Hyperlipidemia - Continue Lipitor CAD s/p remote stents - Continue ASA 3) F/E/N: - Full liquid diet - Monitor electrolytes 4) Prophylaxis: - Heparin 5,000u sq bid - PT 5) Dispo: - Will likely need SNF based on PT evaluations, reevaluate tomorrow and then decide upon discharge plan CODE STATUS: FULL CODE Visit type - Emergency Visit Emergency Visit: Yes ED Registration Date: 03/08/17 Care time: The patient presented to the Emergency Department on the above date and was hospitalized for further evaluation of their emergent condition. - New Patient This patient is new to me today: No - Critical Care Critical Care patient: No
[2017-03-12] MEDS: POLYETHYLENE GLYCOL 3350 119 GM BTL PO SCH (10:24)
--- NOTE | 2017-03-12 10:54 | CONSULT ---
Admitting History and Physical - Primary Care Physician PCP: Polly Galindo - Admission History of Present Illness: This is a 66 year old male with PMHx of HTN, hyperlipidemia, CAD ([place] s/p stents) , prostate cancer s/p radical prostatectomy (2013), admitted for C3-C4, C5-C6 cervical disc herniation. He reports hurting himself while shoveling, with subsequent bilateral tingling in fingers. Stage 1 C4, C5 and C6 Corpectomies, muslim of lordosis, reconstruction with a PEEK cage and anterior plating. Stage 2 C3-7 Laminectomies, muslim of lordosis, and lateral mass instrumentation - BRIANNA drain with serosangeous drainage Pt reports jello and pudding sticking in his throat since PO was initiated on 03/10, needing to wash it down with liquids. He says he is more congested with phlegm production. Pt lso reportedthat the Holy Communion stuck in his throt and when he went to wash it down with water, he was coughing. CXR 03/08 (-) He reports social long hx of cocaine abuse and smoking. He was a burgos and entertainer. Selected Entries 03/10/17 03/10/17 03/11/17 14:49 21:00 04:00 Breakfast 25% Lunch 0 0 Supper Temperature 98.5 F 03/11/17 03/11/17 03/11/17 06:00 10:00 14:00 Breakfast Lunch Supper Temperature 98.1 F 98.8 F 98.6 F 03/11/17 03/11/17 03/12/17 15:27 18:00 02:00 Breakfast 0 Lunch 0 Supper 50% Temperature 97.9 F 98.2 F 03/12/17 03/12/17 03/12/17 05:44 09:06 10:35 Breakfast 25% Lunch Supper Temperature 97.4 F L 97.6 F Laboratory Tests 03/09/17 03/10/17 03/11/17 06:30 05:15 05:00 WBC 5.8 14.1 H D 11.4 H 03/12/17 07:30 WBC 10.8 H History Source: Patient, Medical Record Limitations to Obtaining History: No Limitations - Past Medical History BIAS CUTTER: No: CVA Cardiovascular: Yes: CAD, HTN, Hyperlipdemia, [place] Pulmonary: Yes: COPD Renal/: No: Renal Failure Heme/Onc: No: Anemia - Past Surgical History Past Surgical History: Yes: CABG - Smoking History Smoking history: Former smoker Have you smoked in the past 12 months: Yes Aproximately how many cigarettes per day: 2 If you are a former smoker, when did you quit?: 3 weeks ago - Alcohol/Substance Use Hx Alcohol Use: No History - Admission Reason For Visit: CERVICAL SPINAL STENOSIS - Diagnostics CT Scan: Report Reviewed MRI: Report Reviewed - General Mental Status: Alert and Oriented, Awake and Alert, Able to Follow Commands Attention: Intact Ability to Follow Directions: Excellent Head/Neck Control: Needs Assist (Neck brace,restricts head flexion.) - Hearing Hearing: Normal Speech Evaluation - Communication Primary Language: GEORGIAN Communication: Yes: Within Normal Limits - Speech Production Able to Make Needs Known: Yes: WNL Intelligibility: Yes: WNL - Speech Characteristics Voice Loudness: Mildly Soft/Quiet Voice Pitch: Yes: Pitch Breaks Voice Phonatory-based Quality: Yes: Dysphonia (intermittent) Speech Pattern: Normal Nasal Resonance: Normal Articulation: Yes: Precise - Language/Verbal Expression Able to Respond to Simple Queries: Yes: WNL Able to Communicate Wants and Needs: Yes: WNL Functional Communication Status: Yes: WNL - Memory/Perception custodial Memory: Yes: WNL Short Term Memory: Yes: WNL - Swallow Evaluation/Bedside Assessment Current Nutritional Intake: Full Liquids Oral Secretions: Yes: WFL (expectorating small amount of phlegm.) Dentition: Yes: Adequate Facial Symmetry at Rest: Symmetrical Facial Symmetry on Retraction: Symmetrical Facial Movement: Controlled Pucker Lips: Normal Smile: Normal Lingual Movement: Normal, Symmetric Lingual Speed of Movement: Normal Lingual Movement Strgth Against Opposition: Normal Velopharyngeal Movement: Normal Laryngeal Movement: Able to Palpate, Reduced Excursion, Labored,delay initiation Rate of Intake: WFL Labial Seal: WFL Oral Prep Time: WFL A-P Transit: WFL Pocketing: None Timing of Swallow: Delayed Coughing/Throat Clear: Yes (throat clearing, brief cough after thin liquid) Change in Voice: Yes (intermittent dysphonia/vocal wetness.) Recommendations - Speech Evaluation, Impression/Plan Impression: Pt reports jello and pudding sticking in his throat since PO was initiated on 03/10, needing to wash it down with liquids. He says he is more congested with phlegm production. Following drinking thin liquid, pt presents with throat clearing and brief cough with intermittent dysphonia/vocal wetness. He reports puree sticking in his throat. I suspect pharyngeal stasis with reduced laryngeal excursion, possibly resulting in impaired relaxation of UES and intermittent aspiration on thin liquid. Sensation may be reduced due to edema secondary to recent C3-7 surgery. - Disposition Discharge to: [facility], To be Determined - Dysphagia Impressions/Plan Swallowing Skills: Impaired Dysphagia Impressions: Ongoing Evaluation, Suspect Aspiration *Silent aspiration: cannot be R/O at bedside Recommendations: Modified Barium Swallow (I discussed case with Dr. Negron, and asked if head flexion compensatory technique could be trialed during MBS, which is a rehabilitation study. He said it is too soon and contraindicated at this time.) - Recommendations Diet Consistency: Other (full fluids) Liquids: [place] Thick Supplement: Other (ensure compact)
[2017-03-12] MEDS ORDERED: oxyCODONE HCL 5 MG TABLET PO PRN (12:52)
[2017-03-12] MEDS ORDERED: ACETAMINOPHEN 325 MG TABLET (FP) PO PRN (12:52)
--- NOTE | 2017-03-12 12:52 | PN ---
Progress Note (short form) - Note Progress Note: BRIANNA dc'd with distal tip intact. Occlusive dressing applied. WEEKDAY BABYSITTER dc'd at Dr. Negron's request. Started patient on oral pain management 1 percocet q4h for mild pain 1-5 2 percocet q6h for moderate pain 6-10
--- NOTE | 2017-03-12 15:05 | PN ---
Progress Note (short form) - Note Progress Note: Pain management follow up POD#3, vss, QUALITY CONTROL DIRECTOR d/ila earlier today, patient able to take po meds.
[2017-03-12] MEDS: DOCUSATE SODIUM 100 MG CAPSULE (FP) PO SCH (21:10)
[2017-03-12] MEDS: ATORVASTATIN CA 10 MG TABLET (FP) PO SCH (21:10)
[2017-03-12] MEDS: diphenhydrAMINE HCL 25 MG CAPSULE (FP) PO PRN (21:10)
[2017-03-12] MEDS: ACETAMINOPHEN 325 MG TABLET (FP) PO PRN (21:12)
[2017-03-12] MEDS: CHLORHEXIDINE GLUCONATE 4% CLEANSER FOR DECOLONIZATION TP SCH (21:13)
[2017-03-12] MEDS: oxyCODONE HCL 5 MG TABLET PO PRN (21:13)
--- NOTE | 2017-03-13 06:49 | PN ---
Progress Note, Physician - Current Medication List Current Medications: Active Medications Acetaminophen (Tylenol -) 650 mg PO Q6H PRN PRN Reason: PAIN Last Admin: 03/12/17 21:12 Dose: 650 mg Acetaminophen (Tylenol -) 325 mg PO Q4H PRN PRN Reason: PAIN Stop: 03/15/17 12:51 Amlodipine Besylate (Norvasc -) 5 mg PO DAILY [facility] Last Admin: 03/12/17 09:07 Dose: 5 mg Aspirin (Asa -) 81 mg PO DAILY [facility] Last Admin: 03/12/17 09:07 Dose: 81 mg Atorvastatin Calcium (Lipitor -) 10 mg PO HS [facility] Last Admin: 03/12/17 21:10 Dose: 10 mg Chlorhexidine Gluconate (Hibiclens For Decolonization -) 1 applic TP [facility] Last Admin: 03/12/17 21:13 Dose: Not Given Dexamethasone Sodium Phosphate (Decadron Injection -) 4 mg IVPUSH ONCE PRN PRN Reason: NAUSEA AND/OR VOMITING Diphenhydramine HCl (Benadryl Injection -) 12.5 mg IVPUSH ONCE PRN PRN Reason: FOR ITCHING Diphenhydramine HCl (Benadryl -) 25 mg PO HS PRN PRN Reason: INSOMNIA Last Admin: 03/12/17 21:10 Dose: 25 mg Docusate Sodium (Colace -) 300 mg PO HS [facility] Last Admin: 03/12/17 21:10 Dose: 300 mg Heparin Sodium (Porcine) (Heparin -) 5,000 unit SQ BID [facility] Last Admin: 03/12/17 21:10 Dose: 5,000 unit Metoprolol Tartrate (Lopressor -) 25 mg PO DAILY [facility] Last Admin: 03/12/17 09:07 Dose: 25 mg Oxycodone HCl (Roxicodone -) 10 mg PO Q6H PRN PRN Reason: PAIN Last Admin: 03/12/17 21:13 Dose: 10 mg Oxycodone HCl (Roxicodone -) 5 mg PO Q4H PRN PRN Reason: PAIN Polyethylene Glycol (Miralax (For Daily Use) -) 17 gm PO DAILY [facility] Last Admin: 03/12/17 10:24 Dose: 17 gm Promethazine HCl (Phenergan Injection -) 12.5 mg IVPB Q6H PRN PRN Reason: NAUSEA AND/OR VOMITING - Objective Vital Signs: Vital Signs Temperature 98 F 03/13/17 05:58 Pulse Rate 78 03/13/17 05:58 Respiratory Rate 20 03/13/17 05:58 Blood Pressure 160/91 03/13/17 05:58 O2 Sat by Pulse Oximetry (%) 98 03/12/17 20:03 Labs: CBC, BMP 03/12/17 07:30 03/12/17 07:30 INR, PTT INR 1.10 (0.82-1.09) 03/09/17 06:30
[2017-03-13] MEDS ORDERED: METOPROLOL TARTRATE 25 MG TABLET (FP) PO SCH ×2 (07:33→07:45)
--- NOTE | 2017-03-13 08:23 | PN ---
Progress Note, Physician History of Present Illness: seen and examined today in [facility]. no overnight events. no new complaints. still feels anxious. no pain. mild recurrent b/l finger numbness. - Current Medication List Current Medications: Active Medications Acetaminophen (Tylenol -) 650 mg PO Q6H PRN PRN Reason: PAIN Last Admin: 03/12/17 21:12 Dose: 650 mg Acetaminophen (Tylenol -) 325 mg PO Q4H PRN PRN Reason: PAIN Stop: 03/15/17 12:51 Amlodipine Besylate (Norvasc -) 10 mg PO DAILY [facility] Aspirin (Asa -) 81 mg PO DAILY [facility] Last Admin: 03/12/17 09:07 Dose: 81 mg Atorvastatin Calcium (Lipitor -) 10 mg PO HS [facility] Last Admin: 03/12/17 21:10 Dose: 10 mg Chlorhexidine Gluconate (Hibiclens For Decolonization -) 1 applic TP HS [facility] Last Admin: 03/12/17 21:13 Dose: Not Given Dexamethasone Sodium Phosphate (Decadron Injection -) 4 mg IVPUSH ONCE PRN PRN Reason: NAUSEA AND/OR VOMITING Diphenhydramine HCl (Benadryl Injection -) 12.5 mg IVPUSH ONCE PRN PRN Reason: FOR ITCHING Diphenhydramine HCl (Benadryl -) 25 mg PO HS PRN PRN Reason: INSOMNIA Last Admin: 03/12/17 21:10 Dose: 25 mg Docusate Sodium (Colace -) 300 mg PO HS [facility] Last Admin: 03/12/17 21:10 Dose: 300 mg Heparin Sodium (Porcine) (Heparin -) 5,000 unit SQ BID [facility] Last Admin: 03/12/17 21:10 Dose: 5,000 unit Metoprolol Tartrate (Lopressor -) 25 mg PO DAILY [facility] Oxycodone HCl (Roxicodone -) 10 mg PO Q6H PRN PRN Reason: PAIN Last Admin: 03/12/17 21:13 Dose: 10 mg Oxycodone HCl (Roxicodone -) 5 mg PO Q4H PRN PRN Reason: PAIN Polyethylene Glycol (Miralax (For Daily Use) -) 17 gm PO DAILY [facility] Last Admin: 03/12/17 10:24 Dose: 17 gm Promethazine HCl (Phenergan Injection -) 12.5 mg IVPB Q6H PRN PRN Reason: NAUSEA AND/OR VOMITING - Objective Vital Signs: Vital Signs Temperature 98 F 03/13/17 05:58 Pulse Rate 78 03/13/17 05:58 Respiratory Rate 20 03/13/17 05:58 Blood Pressure 160/91 03/13/17 05:58 O2 Sat by Pulse Oximetry (%) 98 03/12/17 20:03 Constitutional: Yes: Well Nourished, No Distress, Calm Eyes: Yes: Conjunctiva Clear, EOM Intact, PERRL HENT: Yes: Other (c-collar in place) Neck: Yes: Other (see above) Cardiovascular: Yes: Regular Rate and Rhythm, S1, S2. No: Bradycardia, Tachycardia, Pulse Irregular, Bruit, JVD, Gallop, Murmur, Rub, S3, S4, Varicosities Respiratory: Yes: WNL, Regular, CTA Bilaterally. No: Rales, Rhonchi, Wheezes Gastrointestinal: Yes: WNL, Normal Bowel Sounds, Soft. No: Distention, Tenderness Musculoskeletal: Yes: WNL Extremities: Yes: WNL Edema: No Peripheral Pulses WNL: Yes Peripheral Pulses: Left Doralis Pedis: 2+, Right Dorsalis Pedis: 2+ Integumentary: Yes: WNL Neurological: Yes: Alert, Oriented, Tingling Psychiatric: Yes: Alert, Oriented Labs: CBC, BMP 03/12/17 07:30 03/12/17 07:30 INR, PTT INR 1.10 (0.82-1.09) 03/09/17 06:30 - ....Imaging Chest X-ray: Report Reviewed, Image Reviewed EKG: Report Reviewed, Image Reviewed Other: Report Reviewed, Image Reviewed Assessment/Plan Cervical radiculopathy due to moderate disc herniations at C3/4/5/6 s/p surgical intervention Spinal stenosis CAD h/o inferior [place] and PCI 2012, 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 HTN has been slightly above goal likely exacerbated by anxiety and post op discomfort -increase amlodipine to 10mg daily, increase lopressor to home dose of 25mg bid Cont ASA 81mg daily Cont Lipitor Ok from a cardiac standpoint for discharge planning, no additional planned inpatient work up
[2017-03-13 08:48] LABS: BASOPHIL 0.8 % (0-2.0); MCH 31.3 pg (25.7-33.7); MCHC 34.3 g/dl (32.0-35.9); MEAN CELL VOLUME 91.3 fl (80-96); MEAN PLT VOLUME 8.4 fl (7.5-11.1); NEUTROPHILS 71.2 % (42.8-82.8); PLATELET COUNT 273 K/MM3 (134-434); RDW 13.5 % (11.9-15.9)
[2017-03-13] MEDS: ASPIRIN 81 MG CHEWABLE TABLETS PO SCH (09:14)
[2017-03-13] MEDS: amLODIPine BESYLATE 5 MG TABLET (FP) PO SCH (09:14)
[2017-03-13] MEDS: METOPROLOL TARTRATE 25 MG TABLET (FP) PO SCH ×2 (09:14→21:21)
[2017-03-13] MEDS: POLYETHYLENE GLYCOL 3350 119 GM BTL PO SCH (09:14)
[2017-03-13 09:18] LABS: ALBUMIN 3.6 g/dl (3.4-5.0); ALK PHOS 59 U/L (45-117); ANION GAP 13 (8-16); BILIRUBIN,TOTAL 0.6 mg/dL (0.2-1.0); CALCIUM 9.2 mg/dL (8.5-10.1); CO2 27 mmol/L (21-32); CREATININE 0.8 mg/dL (0.7-1.3); GLUCOSE,RANDOM 174 mg/dL (74-106); SGOT/AST 43 U/L (15-37); SGPT/ALT 58 U/L (12-78); TOT PROT 7.1 g/dl (6.4-8.2)
[2017-03-13] MEDS: HEPARIN NA (PORCINE) 5,000 UNITS/ML 1ML VIAL SQ SCH ×2 (10:00→21:21)
--- NOTE | 2017-03-13 10:17 | PN ---
Progress Note (short form) - Note Progress Note: Subjective: The patient was seen and examined at the bedside, he states increase in tingling of his fingertips. Discussed with Dr. Negron and informed of fingertip tingling. He is aware. Accepted to [facility] Current Medications Generic Name Dose Route Start Last Admin Trade Name Freq PRN Reason Stop Dose Admin Acetaminophen 650 mg 03/12/17 12:50 03/12/17 21:12 Tylenol - PO 650 mg Q6H PRN Administration PAIN Acetaminophen 325 mg 03/12/17 12:52 Tylenol - PO 03/15/17 12:51 Q4H PRN PAIN Amlodipine Besylate 10 mg 03/13/17 08:16 03/13/17 09:14 Norvasc - PO 10 mg DAILY [facility] Administration Aspirin 81 mg 03/11/17 10:00 03/13/17 09:14 Asa - PO 81 mg DAILY [facility] Administration Atorvastatin Calcium 10 mg 03/10/17 22:00 03/12/17 21:10 Lipitor - PO 10 mg HS [facility] Administration Chlorhexidine Gluconate 1 applic 03/10/17 22:00 03/12/17 21:13 Hibiclens For Decolonization - TP Not Given HS [facility] Dexamethasone Sodium Phosphate 4 mg 03/10/17 13:52 Decadron Injection - IVPUSH ONCE PRN NAUSEA AND/OR VOMITING Diphenhydramine HCl 12.5 mg 03/10/17 13:52 Benadryl Injection - IVPUSH ONCE PRN FOR ITCHING Diphenhydramine HCl 25 mg 03/12/17 19:01 03/12/17 21:10 Benadryl - PO 25 mg HS PRN Administration INSOMNIA Docusate Sodium 300 mg 03/10/17 22:00 03/12/17 21:10 Colace - PO 300 mg HS [facility] Administration Heparin Sodium (Porcine) 5,000 unit 03/10/17 22:00 03/12/17 21:10 Heparin - SQ 5,000 unit BID [facility] Administration Metoprolol Tartrate 25 mg 03/13/17 10:00 03/13/17 09:14 Lopressor - PO 25 mg BID [facility] Administration Oxycodone HCl 10 mg 03/12/17 12:50 03/12/17 21:13 Roxicodone - PO 10 mg Q6H PRN Administration PAIN Oxycodone HCl 5 mg 03/12/17 12:52 Roxicodone - PO Q4H PRN PAIN Polyethylene Glycol 17 gm 03/10/17 20:15 03/13/17 09:14 Miralax (For Daily Use) - PO 17 gm DAILY [facility] Administration Promethazine HCl 12.5 mg 03/10/17 13:52 Phenergan Injection - IVPB Q6H PRN NAUSEA AND/OR VOMITING Objective: Vital Signs Period Temp Pulse Resp BP Sys/Hartmann Pulse Ox Last 24 Hr 98 F-98.6 F 73-99 18-20 139-160/78-93 98 Physical Exam: General: NAD, A&Ox3. hoarse, weak voice HEENT: C-collar in place Lungs: CTA bilaterally Heart: RRR, S1S2 Abd: Soft, non-tender, non-distended. Normoactive bowel sounds Ext: Warm, well-perfused. 2+ DP/PT bilaterally CBCD WBC 10.0 K/mm3 (4.0-10.0) 03/13/17 07:35 RBC 4.36 M/mm3 (4.00-5.60) 03/13/17 07:35 Hgb 13.6 GM/dL (11.7-16.9) 03/13/17 07:35 Hct 39.8 % (35.4-49) 03/13/17 07:35 MCV 91.3 fl (80-96) 03/13/17 07:35 MCHC 34.3 g/dl (32.0-35.9) 03/13/17 07:35 RDW 13.5 % (11.9-15.9) 03/13/17 07:35 Plt Count 273 K/MM3 (134-434) 03/13/17 07:35 MPV 8.4 fl (7.5-11.1) 03/13/17 07:35 CMP Sodium 135 mmol/L (136-145) L 03/13/17 07:35 Potassium 3.6 mmol/L (3.5-5.1) 03/13/17 07:35 Chloride 95 mmol/L (98-107) L 03/13/17 07:35 Carbon Dioxide 27 mmol/L (21-32) 03/13/17 07:35 Anion Gap 13 (8-16) 03/13/17 07:35 BUN 12 mg/dL (7-18) 03/13/17 07:35 Creatinine 0.8 mg/dL (0.7-1.3) 03/13/17 07:35 Creat Clearance w eGFR > 60 (>60) 03/13/17 07:35 Random Glucose 174 mg/dL (74-106) H D 03/13/17 07:35 Calcium 9.2 mg/dL (8.5-10.1) 03/13/17 07:35 Total Bilirubin 0.6 mg/dL (0.2-1.0) 03/13/17 07:35 AST 43 U/L (15-37) H D 03/13/17 07:35 ALT 58 U/L (12-78) D 03/13/17 07:35 Alkaline Phosphatase 59 U/L (45-117) 03/13/17 07:35 Total Protein 7.1 g/dl (6.4-8.2) 03/13/17 07:35 Albumin 3.6 g/dl (3.4-5.0) 03/13/17 07:35 CARDIAC ENZYMES Creatine Kinase 390 IU/L (39-308) H 03/08/17 11:50 Troponin I 0.06 ng/ml (0.00-0.05) H 03/09/17 01:00 Assessment: This is a 66 year old male with PMHx of HTN, hyperlipidemia, CAD ( [place] s/p stents), prostate cancer s/p radical prostatectomy (2013), admitted for C3-C4, C5-C6 cervical disc herniation Plan: 1) Neurosurgery: C3-C4, C5-C6 disc herniation, cervical spinal stenosis - POD#4: Stage 1 C4, C5 and C6 Corpectomies, jewish of lordosis, reconstruction with a PEEK cage and anterior plating. Stage 2 C3-7 Laminectomies , jewish of lordosis, and lateral mass instrumentation - Improving b/l fingertip parasthesias - Pain management with oxycodone - Mod barium swallow: dysphagia pureed diet - Appreciate neurosurgical consult 2) Cardiology: HTN - Increased Lopressor to home dose of 25mg po bid - Increased Norvasc to 10mg po daily Hyperlipidemia - Continue Lipitor CAD s/p remote stents - Continue ASA 3) F/E/N: - Dysphagia pureed diet - Monitor electrolytes 4) Prophylaxis: - Heparin 5,000u sq bid - PT 5) Dispo: - For [facility] once authorization CODE STATUS: FULL CODE Visit type - Emergency Visit Emergency Visit: Yes ED Registration Date: 03/08/17 Care time: The patient presented to the Emergency Department on the above date and was hospitalized for further evaluation of their emergent condition. - New Patient This patient is new to me today: No - Critical Care Critical Care patient: No
[2017-03-13] MEDS: ATORVASTATIN CA 10 MG TABLET (FP) PO SCH (21:20)
[2017-03-13] MEDS: DOCUSATE SODIUM 100 MG CAPSULE (FP) PO SCH (21:21)
[2017-03-13] MEDS: diphenhydrAMINE HCL 25 MG CAPSULE (FP) PO PRN (21:21)
[2017-03-13] MEDS: CHLORHEXIDINE GLUCONATE 4% CLEANSER FOR DECOLONIZATION TP SCH (22:00)
--- NOTE | 2017-03-14 07:07 | PN ---
Progress Note, Physician History of Present Illness: seen and examined today in [facility]. no overnight events. no new complaints. - Current Medication List Current Medications: Active Medications Acetaminophen (Tylenol -) 650 mg PO Q6H PRN PRN Reason: PAIN Last Admin: 03/12/17 21:12 Dose: 650 mg Acetaminophen (Tylenol -) 325 mg PO Q4H PRN PRN Reason: PAIN Stop: 03/15/17 12:51 Amlodipine Besylate (Norvasc -) 10 mg PO DAILY [facility] Last Admin: 03/13/17 09:14 Dose: 10 mg Aspirin (Asa -) 81 mg PO DAILY [facility] Last Admin: 03/13/17 09:14 Dose: 81 mg Atorvastatin Calcium (Lipitor -) 10 mg PO HS [facility] Last Admin: 03/13/17 21:20 Dose: 10 mg Chlorhexidine Gluconate (Hibiclens For Decolonization -) 1 applic TP HS [facility] Last Admin: 03/12/17 21:13 Dose: Not Given Dexamethasone Sodium Phosphate (Decadron Injection -) 4 mg IVPUSH ONCE PRN PRN Reason: NAUSEA AND/OR VOMITING Diphenhydramine HCl (Benadryl Injection -) 12.5 mg IVPUSH ONCE PRN PRN Reason: FOR ITCHING Diphenhydramine HCl (Benadryl -) 25 mg PO HS PRN PRN Reason: INSOMNIA Last Admin: 03/13/17 21:21 Dose: 25 mg Docusate Sodium (Colace -) 300 mg PO HS [facility] Last Admin: 03/13/17 21:21 Dose: 300 mg Heparin Sodium (Porcine) (Heparin -) 5,000 unit SQ BID [facility] Last Admin: 03/13/17 21:21 Dose: 5,000 unit Metoprolol Tartrate (Lopressor -) 25 mg PO BID [facility] Last Admin: 03/13/17 21:21 Dose: 25 mg Oxycodone HCl (Roxicodone -) 10 mg PO Q6H PRN PRN Reason: PAIN Last Admin: 03/12/17 21:13 Dose: 10 mg Oxycodone HCl (Roxicodone -) 5 mg PO Q4H PRN PRN Reason: PAIN Polyethylene Glycol (Miralax (For Daily Use) -) 17 gm PO DAILY [facility] Last Admin: 03/13/17 09:14 Dose: 17 gm Promethazine HCl (Phenergan Injection -) 12.5 mg IVPB Q6H PRN PRN Reason: NAUSEA AND/OR VOMITING - Objective Vital Signs: Vital Signs Temperature 98.3 F 03/14/17 05:24 Pulse Rate 95 H 03/14/17 05:24 Respiratory Rate 20 03/14/17 05:24 Blood Pressure 132/88 03/14/17 05:24 O2 Sat by Pulse Oximetry (%) 96 03/13/17 21:00 Constitutional: Yes: Well Nourished, No Distress, Calm Eyes: Yes: Conjunctiva Clear, EOM Intact, PERRL HENT: Yes: Other (c-collar in place) Neck: Yes: Other (c-collar in place) Cardiovascular: Yes: Regular Rate and Rhythm, S1, S2. No: Bradycardia, Tachycardia, Pulse Irregular, Bruit, JVD, Gallop, Murmur, Rub, S3, S4, Varicosities Respiratory: Yes: Regular, CTA Bilaterally. No: Rales, Rhonchi, Wheezes Gastrointestinal: Yes: Normal Bowel Sounds, Soft. 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 HTN has been slightly above goal likely exacerbated by anxiety and post op discomfort, improved since yesterday with adjustment in medical regimen -cont amlodipine 10mg daily and lopressor 25mg bid Cont ASA 81mg daily Cont Lipitor Ok from a cardiac standpoint for discharge planning, no additional planned inpatient work up, pt accepted to [facility] Close outpatient f/up after rehab
[2017-03-14] MEDS: ASPIRIN 81 MG CHEWABLE TABLETS PO SCH (10:44)
[2017-03-14] MEDS: METOPROLOL TARTRATE 25 MG TABLET (FP) PO SCH ×2 (10:44→21:11)
[2017-03-14] MEDS: HEPARIN NA (PORCINE) 5,000 UNITS/ML 1ML VIAL SQ SCH ×2 (10:44→21:10)
[2017-03-14] MEDS: amLODIPine BESYLATE 5 MG TABLET (FP) PO SCH (10:44)
[2017-03-14] MEDS: POLYETHYLENE GLYCOL 3350 119 GM BTL PO SCH (10:45)
[2017-03-14] MEDS ORDERED: BISACODYL 5 MG TABLET.DR (FP) PO ONE (11:45)
--- NOTE | 2017-03-14 12:09 | PN ---
Progress Note (short form) - Note Progress Note: Subjective: The patient was seen and examined at the bedside, he is eager to leave Awaiting auth Current Medications Generic Name Dose Route Start Last Admin Trade Name Freq PRN Reason Stop Dose Admin Acetaminophen 650 mg 03/12/17 12:50 03/12/17 21:12 Tylenol - PO 650 mg Q6H PRN Administration PAIN Acetaminophen 325 mg 03/12/17 12:52 Tylenol - PO 03/15/17 12:51 Q4H PRN PAIN Amlodipine Besylate 10 mg 03/13/17 08:16 03/14/17 10:44 Norvasc - PO 10 mg DAILY [facility] Administration Aspirin 81 mg 03/11/17 10:00 03/14/17 10:44 Asa - PO 81 mg DAILY [facility] Administration Atorvastatin Calcium 10 mg 03/10/17 22:00 03/13/17 21:20 Lipitor - PO 10 mg HS [facility] Administration Chlorhexidine Gluconate 1 applic 03/10/17 22:00 03/13/17 22:00 Hibiclens For Decolonization - TP Not Given HS [facility] Dexamethasone Sodium Phosphate 4 mg 03/10/17 13:52 Decadron Injection - IVPUSH ONCE PRN NAUSEA AND/OR VOMITING Diphenhydramine HCl 12.5 mg 03/10/17 13:52 Benadryl Injection - IVPUSH ONCE PRN FOR ITCHING Diphenhydramine HCl 25 mg 03/12/17 19:01 03/13/17 21:21 Benadryl - PO 25 mg HS PRN Administration INSOMNIA Docusate Sodium 300 mg 03/10/17 22:00 03/13/17 21:21 Colace - PO 300 mg HS [facility] Administration Heparin Sodium (Porcine) 5,000 unit 03/10/17 22:00 03/14/17 10:44 Heparin - SQ 5,000 unit BID [facility] Administration Metoprolol Tartrate 25 mg 03/13/17 10:00 03/14/17 10:44 Lopressor - PO 25 mg BID [facility] Administration Oxycodone HCl 10 mg 03/12/17 12:50 03/12/17 21:13 Roxicodone - PO 10 mg Q6H PRN Administration PAIN Oxycodone HCl 5 mg 03/12/17 12:52 Roxicodone - PO Q4H PRN PAIN Polyethylene Glycol 17 gm 03/10/17 20:15 03/14/17 10:45 Miralax (For Daily Use) - PO 17 gm DAILY [facility] Administration Promethazine HCl 12.5 mg 03/10/17 13:52 Phenergan Injection - IVPB Q6H PRN NAUSEA AND/OR VOMITING Objective: Vital Signs Period Temp Pulse Resp BP Sys/Hartmann Pulse Ox Last 24 Hr 98.3 F-98.6 F 71-95 17-20 130-158/69-88 96-96 Physical Exam: General: NAD, A&Ox3. hoarse, hoarse voice HEENT: C-collar in place Lungs: CTA bilaterally, no stridor noted Heart: RRR, S1S2 Abd: Soft, non-tender, non-distended. Normoactive bowel sounds Ext: Warm, well-perfused. 2+ DP/PT bilaterally CBCD WBC 10.0 K/mm3 (4.0-10.0) 03/13/17 07:35 RBC 4.36 M/mm3 (4.00-5.60) 03/13/17 07:35 Hgb 13.6 GM/dL (11.7-16.9) 03/13/17 07:35 Hct 39.8 % (35.4-49) 03/13/17 07:35 MCV 91.3 fl (80-96) 03/13/17 07:35 MCHC 34.3 g/dl (32.0-35.9) 03/13/17 07:35 RDW 13.5 % (11.9-15.9) 03/13/17 07:35 Plt Count 273 K/MM3 (134-434) 03/13/17 07:35 MPV 8.4 fl (7.5-11.1) 03/13/17 07:35 CMP Sodium 135 mmol/L (136-145) L 03/13/17 07:35 Potassium 3.6 mmol/L (3.5-5.1) 03/13/17 07:35 Chloride 95 mmol/L (98-107) L 03/13/17 07:35 Carbon Dioxide 27 mmol/L (21-32) 03/13/17 07:35 Anion Gap 13 (8-16) 03/13/17 07:35 BUN 12 mg/dL (7-18) 03/13/17 07:35 Creatinine 0.8 mg/dL (0.7-1.3) 03/13/17 07:35 Creat Clearance w eGFR > 60 (>60) 03/13/17 07:35 Calcium 9.2 mg/dL (8.5-10.1) 03/13/17 07:35 Total Bilirubin 0.6 mg/dL (0.2-1.0) 03/13/17 07:35 AST 43 U/L (15-37) H D 03/13/17 07:35 ALT 58 U/L (12-78) D 03/13/17 07:35 Alkaline Phosphatase 59 U/L (45-117) 03/13/17 07:35 Total Protein 7.1 g/dl (6.4-8.2) 03/13/17 07:35 Albumin 3.6 g/dl (3.4-5.0) 03/13/17 07:35 Assessment: This is a 66 year old male with PMHx of HTN, hyperlipidemia, CAD ( [place] s/p stents), prostate cancer s/p radical prostatectomy (2013), admitted for C3-C4, C5-C6 cervical disc herniation Plan: 1) Neurosurgery: C3-C4, C5-C6 disc herniation, cervical spinal stenosis - POD#5: Stage 1 C4, C5 and C6 Corpectomies, cheondoism of lordosis, reconstruction with a PEEK cage and anterior plating. Stage 2 C3-7 Laminectomies , cheondoism of lordosis, and lateral mass instrumentation - Improving b/l fingertip parasthesias - Pain management with oxycodone - Bowel regimen: ducolax added today as patient has not had bowel movement since surgery - Mod barium swallow: dysphagia pureed diet - Appreciate neurosurgical consult 2) Cardiology: HTN - Continue Lopressor to home dose of 25mg po bid - Continue Norvasc to 10mg po daily Hyperlipidemia - Continue Lipitor CAD s/p remote stents - Continue ASA 3) F/E/N: - Dysphagia pureed diet - Monitor electrolytes 4) Prophylaxis: - Heparin 5,000u sq bid - PT 5) Dispo: - For [facility] once authorization CODE STATUS: FULL CODE Visit type - Emergency Visit Emergency Visit: Yes ED Registration Date: 03/08/17 Care time: The patient presented to the Emergency Department on the above date and was hospitalized for further evaluation of their emergent condition. - New Patient This patient is new to me today: No - Critical Care Critical Care patient: No
[2017-03-14] MEDS: DOCUSATE SODIUM 100 MG CAPSULE (FP) PO SCH (21:10)
[2017-03-14] MEDS: ATORVASTATIN CA 10 MG TABLET (FP) PO SCH (21:11)
[2017-03-14] MEDS: ACETAMINOPHEN 325 MG TABLET (FP) PO PRN (21:11)
[2017-03-14] MEDS: oxyCODONE HCL 5 MG TABLET PO PRN (21:11)
[2017-03-15] MEDS: CHLORHEXIDINE GLUCONATE 4% CLEANSER FOR DECOLONIZATION TP SCH ×2 (00:37→21:39)
--- NOTE | 2017-03-15 09:06 | PN ---
Progress Note, Physician History of Present Illness: seen and examined today in nad. no overnight events. no new complaints. - Current Medication List Current Medications: Active Medications Acetaminophen (Tylenol -) 650 mg PO Q6H PRN PRN Reason: PAIN Last Admin: 03/14/17 21:11 Dose: 650 mg Acetaminophen (Tylenol -) 325 mg PO Q4H PRN PRN Reason: PAIN Stop: 03/15/17 12:51 Amlodipine Besylate (Norvasc -) 10 mg PO DAILY [facility] Last Admin: 03/14/17 10:44 Dose: 10 mg Aspirin (Asa -) 81 mg PO DAILY [facility] Last Admin: 03/14/17 10:44 Dose: 81 mg Atorvastatin Calcium (Lipitor -) 10 mg PO HS [facility] Last Admin: 03/14/17 21:11 Dose: 10 mg Chlorhexidine Gluconate (Hibiclens For Decolonization -) 1 applic TP HS [facility] Last Admin: 03/15/17 00:37 Dose: Not Given Dexamethasone Sodium Phosphate (Decadron Injection -) 4 mg IVPUSH ONCE PRN PRN Reason: NAUSEA AND/OR VOMITING Diphenhydramine HCl (Benadryl Injection -) 12.5 mg IVPUSH ONCE PRN PRN Reason: FOR ITCHING Diphenhydramine HCl (Benadryl -) 25 mg PO HS PRN PRN Reason: INSOMNIA Last Admin: 03/13/17 21:21 Dose: 25 mg Docusate Sodium (Colace -) 300 mg PO HS [facility] Last Admin: 03/14/17 21:10 Dose: 300 mg Heparin Sodium (Porcine) (Heparin -) 5,000 unit SQ BID [facility] Last Admin: 03/14/17 21:10 Dose: 5,000 unit Metoprolol Tartrate (Lopressor -) 25 mg PO BID [facility] Last Admin: 03/14/17 21:11 Dose: 25 mg Oxycodone HCl (Roxicodone -) 10 mg PO Q6H PRN PRN Reason: PAIN Last Admin: 03/14/17 21:11 Dose: 10 mg Oxycodone HCl (Roxicodone -) 5 mg PO Q4H PRN PRN Reason: PAIN Polyethylene Glycol (Miralax (For Daily Use) -) 17 gm PO DAILY [facility] Last Admin: 03/14/17 10:45 Dose: 17 gm Promethazine HCl (Phenergan Injection -) 12.5 mg IVPB Q6H PRN PRN Reason: NAUSEA AND/OR VOMITING - Objective Vital Signs: Vital Signs Temperature 98.1 F 03/15/17 06:00 Pulse Rate 60 03/15/17 06:00 Respiratory Rate 20 03/15/17 06:00 Blood Pressure 147/78 03/15/17 06:00 O2 Sat by Pulse Oximetry (%) 96 03/14/17 21:00 Constitutional: Yes: No Distress, Calm Eyes: Yes: Conjunctiva Clear, EOM Intact, PERRL HENT: Yes: Other (c-collar) Neck: Yes: Other (c-collar) Cardiovascular: Yes: Regular Rate and Rhythm, S1, S2. No: Bradycardia, Tachycardia, Pulse Irregular, Bruit, JVD, Gallop, Murmur, Rub, S3, S4, Varicosities Respiratory: Yes: Regular, CTA Bilaterally. No: Rales, Rhonchi, Wheezes Gastrointestinal: Yes: Normal Bowel Sounds, Soft. No: Distention, Tenderness Extremities: Yes: WNL Edema: No Peripheral Pulses WNL: Yes Peripheral Pulses: Left Doralis Pedis: 2+, Right Dorsalis Pedis: 2+ Integumentary: Yes: WNL Neurological: Yes: Alert, Oriented, Tingling Psychiatric: Yes: Alert, Oriented Labs: CBC, BMP 03/13/17 07:35 03/13/17 07:35 INR, PTT INR 1.10 (0.82-1.09) 03/09/17 06:30 - ....Imaging Chest X-ray: Report Reviewed, Image Reviewed EKG: Report Reviewed, Image Reviewed Other: Report Reviewed, Image Reviewed Assessment/Plan Cervical radiculopathy due to moderate disc herniations at C3/4/5/6 s/p surgical intervention Spinal stenosis CAD h/o inferior [place] and PCI 2012, 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 HTN overall improved -cont amlodipine 10mg daily and lopressor 25mg bid -close outpatient f/up of HTN after rehab CAD-stable, h/o PCI Cont ASA 81mg daily Cont Lipitor Ok from a cardiac standpoint for discharge with close outpatient f/up after rehab
--- NOTE | 2017-03-15 09:23 | DS ---
Physical Exam: SUBJECTIVE: Patient seen and examined OBJECTIVE: Vital Signs Period Temp Pulse Resp BP Sys/Hartmann Pulse Ox Last 24 Hr 98.1 F-98.5 F 60-80 18-20 127-147/70-78 96-96 PHYSICAL EXAM GENERAL: The patient is awake, alert, and fully oriented, in no acute distress. NECK: Hard cervical collar in place. LUNGS: Breath sounds equal, clear to auscultation bilaterally, no wheezes, no crackles, no accessory muscle use. HEART: Regular rate and rhythm, S1, S2 without murmur, rub or gallop. ABDOMEN: Soft, nontender, nondistended, normoactive bowel sounds, no guarding, no rebound, no hepatosplenomegaly, no masses. EXTREMITIES: 2+ pulses, warm, well-perfused, no edema. LABS CBCD WBC 10.0 K/mm3 (4.0-10.0) 03/13/17 07:35 RBC 4.36 M/mm3 (4.00-5.60) 03/13/17 07:35 Hgb 13.6 GM/dL (11.7-16.9) 03/13/17 07:35 Hct 39.8 % (35.4-49) 03/13/17 07:35 MCV 91.3 fl (80-96) 03/13/17 07:35 MCHC 34.3 g/dl (32.0-35.9) 03/13/17 07:35 RDW 13.5 % (11.9-15.9) 03/13/17 07:35 Plt Count 273 K/MM3 (134-434) 03/13/17 07:35 MPV 8.4 fl (7.5-11.1) 03/13/17 07:35 CMP Sodium 135 mmol/L (136-145) L 03/13/17 07:35 Potassium 3.6 mmol/L (3.5-5.1) 03/13/17 07:35 Chloride 95 mmol/L (98-107) L 03/13/17 07:35 Carbon Dioxide 27 mmol/L (21-32) 03/13/17 07:35 Anion Gap 13 (8-16) 03/13/17 07:35 BUN 12 mg/dL (7-18) 03/13/17 07:35 Creatinine 0.8 mg/dL (0.7-1.3) 03/13/17 07:35 Creat Clearance w eGFR > 60 (>60) 03/13/17 07:35 Calcium 9.2 mg/dL (8.5-10.1) 03/13/17 07:35 Total Bilirubin 0.6 mg/dL (0.2-1.0) 03/13/17 07:35 AST 43 U/L (15-37) H D 03/13/17 07:35 ALT 58 U/L (12-78) D 03/13/17 07:35 Alkaline Phosphatase 59 U/L (45-117) 03/13/17 07:35 Total Protein 7.1 g/dl (6.4-8.2) 03/13/17 07:35 Albumin 3.6 g/dl (3.4-5.0) 03/13/17 07:35 HOSPITAL COURSE: Date of Admission:03/08/17 Date of Discharge: 03/15/17 Discharge Summary Reason For Visit: CERVICAL SPINAL STENOSIS Current Active Problems Cervical spinal stenosis (Acute) Hx of CABG (Acute) Paresthesia of upper extremity (Acute) Sinus bradycardia (Acute) Troponin I above reference range (Acute) Condition: Improved - Instructions Diet, Activity, Other Instructions: Patient needs a dysphagia pureed diet. Referrals: Brooks Franco MD [Primary Care Provider] - Disposition: PHYSICAL REHABILATION FACILITY - Home Medications Comprehensive Discharge Medication List: Ambulatory Orders Aspirin [ASA -] 81 mg PO DAILY 05/10/13 Atorvastatin Ca [Lipitor] 10 mg PO HS 05/10/13 Metoprolol Tartrate [Lopressor -] 25 mg PO DAILY 05/10/13 Acetaminophen [Tylenol .Regular Strength -] 650 mg PO Q6H PRN #0 tablet Amlodipine Besylate [Norvasc -] 10 mg PO DAILY tablet 03/15/17 Docusate Sodium [Colace -] 300 mg PO HS #30 mg 03/15/17 Polyethylene Glycol 3350 [Miralax 119 gm Btl -] 17 gm PO DAILY bottle 03/15/17
[2017-03-15] MEDS: METOPROLOL TARTRATE 25 MG TABLET (FP) PO SCH ×2 (09:40→21:35)
[2017-03-15] MEDS: amLODIPine BESYLATE 5 MG TABLET (FP) PO SCH (09:40)
[2017-03-15] MEDS: HEPARIN NA (PORCINE) 5,000 UNITS/ML 1ML VIAL SQ SCH ×2 (09:41→21:35)
[2017-03-15] MEDS: ASPIRIN 81 MG CHEWABLE TABLETS PO SCH (09:41)
[2017-03-15] MEDS: POLYETHYLENE GLYCOL 3350 119 GM BTL PO SCH (09:41)
--- NOTE | 2017-03-15 13:13 | PN ---
Progress Note, [employer] - Note Progress Note: Pending d/c. Educated pt and his regarding wallowing exercises and compensatory strategies to facilitate improved swallowing function. I showed the pt and his the video of MBS to better understand the rationale behind the swallowing strategies. Suggest repeat MBS to upgrade diet as swallowing improves. Selected Entries 03/14/17 03/14/17 03/14/17 05:24 08:33 09:00 Breakfast 50% Lunch 75% Supper Temperature 98.3 F 98.6 F 03/14/17 03/14/17 03/14/17 14:00 18:00 23:00 Breakfast 50% Lunch 50% Supper 75% Temperature 98.4 F 98.5 F 03/15/17 03/15/17 03/15/17 06:00 09:29 09:36 Breakfast 75% Lunch Supper Temperature 98.1 F 98.2 F Laboratory Tests 03/11/17 03/12/17 03/13/17 05:00 07:30 07:35 WBC 11.4 H 10.8 H 10.0 Pt no longer coughing with PO intake. Less phlegm production.
[2017-03-15] MEDS ORDERED: oxyCODONE HCL 5 MG TABLET PO PRN (21:17)
[2017-03-15] MEDS: ACETAMINOPHEN 325 MG TABLET (FP) PO PRN (21:34)
[2017-03-15] MEDS: diphenhydrAMINE HCL 25 MG CAPSULE (FP) PO PRN (21:35)
[2017-03-15] MEDS: DOCUSATE SODIUM 100 MG CAPSULE (FP) PO SCH (21:35)
[2017-03-15] MEDS: ATORVASTATIN CA 10 MG TABLET (FP) PO SCH (21:35)
[2017-03-16 09:27] VITALS: BP 151/70; PULSE 67; TEMP 97.4
[2017-03-16] MEDS: HEPARIN NA (PORCINE) 5,000 UNITS/ML 1ML VIAL SQ SCH (09:27)
[2017-03-16] MEDS: amLODIPine BESYLATE 5 MG TABLET (FP) PO SCH (09:27)
[2017-03-16] MEDS: ASPIRIN 81 MG CHEWABLE TABLETS PO SCH (09:27)
[2017-03-16] MEDS: METOPROLOL TARTRATE 25 MG TABLET (FP) PO SCH (09:27)
[2017-03-16] MEDS: POLYETHYLENE GLYCOL 3350 119 GM BTL PO SCH (09:27)
--- NOTE | 2017-03-16 11:01 | PN ---
Progress Note, [employer] - Note Progress Note: Pt will be transferred to [facility] today. Swallowing is improving and pt is performing effortful swallow, Elise, techniques. Pending Mendelssohn maneuver introduction and continued swallowing treatment at [facility]. Pt is NOT yet allowed to perform any head flexion/chin tuck techniques at this time, per surgeon. Selected Entries 03/15/17 03/15/17 03/15/17 06:00 09:29 09:36 Breakfast 75% Lunch Supper Temperature 98.1 F 98.2 F 03/15/17 03/15/17 03/15/17 13:40 19:12 22:42 Breakfast Lunch 75% Supper 100% Temperature 98.0 F 97.5 F L 03/16/17 03/16/17 06:00 09:26 Breakfast Lunch Supper Temperature 98.4 F 97.4 F L Laboratory Tests 03/13/17 07:35 WBC 10.0 Suggest repeat MBS, when appropriate, to upgrade diet with safety.
== END 2017-03-16 11:58 | DRG 473 ==
LOC: JER 11:03 → JERBED 15:02 → J4S 16:39 → JICU 03-09 15:15 → J6S 03-11 16:56
PROVIDERS: ADMIT Internal Medicine; ATTEND Nurse Practitioner Acute Care
PROC: 00NW0ZZ Release Cervical Spinal Cord, Open Approach (ICD-10-PCS; principal; 2017-03-08)
PROC: 0RG20A1 (ICD-10-PCS; 2017-03-08)
PROC: 0RG2071 Fusion of 2 or more Cervical Vertebral Joints with Autologous Tissue Substitute, Posterior Approach, Posterior Column, Open Approach (ICD-10-PCS; 2017-03-08)
DX: M50.20 Other cervical disc displacement, unspecified cervical region (principal); M48.02 Spinal stenosis, cervical region; I10 Essential (primary) hypertension; E78.5 Hyperlipidemia, unspecified; I25.10 Atherosclerotic heart disease of native coronary artery without angina pectoris; Z95.1 Presence of aortocoronary bypass graft; R00.1 Bradycardia, unspecified; Z98.61 Coronary angioplasty status; Z85.46 Personal history of malignant neoplasm of prostate; I25.2 Old myocardial infarction; M54.12 Radiculopathy, cervical region
CPT/HCPCS: 36415; 71010-TC; 72125-TC; 72141-TC; 74230-TC; 76000-TC; 80048; 80053; 80061; 82553; 83721; 83735; 84100; 84443; 84484; 85025; 85027; 85610; 85730; 86850; 86900; 86901; 92611-GN; 93005; 93010; 93306-TC; 94760; 97116-GP; 97162-GP; 99285-25; J1644

== ENCOUNTER 2018-02-09 11:16 | Emergency (ER) | payer BC, OTHER ==
[2018-02-09 11:28] VITALS: BP 121/72; PULSE 94; TEMP 100; BMI 28.7
--- NOTE | 2018-02-09 12:31 | PDOC ---
History of Present Illness - General Chief Complaint: Respiratory Stated Complaint: LIGHTHEADED - History of Present Illness Initial Comments: 67-year-old male without comorbidities presents for evaluation of cough and subjective tactile fever at home 2 weeks. His cough is productive of greenish yellow sputum he feels congested in his chest. He has taken Mucinex with some relief. 02/09/18 12:28 Past History - Past Medical History Allergies/Adverse Reactions: Allergies Allergy/AdvReac Type Severity Reaction Status Date / Time No Known Allergies Allergy Verified 02/09/18 11:24 Home Medications: Ambulatory Orders Aspirin [ASA -] 81 mg PO DAILY 05/10/13 Atorvastatin Ca [Lipitor] 10 mg PO HS 05/10/13 Metoprolol Tartrate [Lopressor -] 25 mg PO DAILY 05/10/13 Amlodipine Besylate [Norvasc -] 10 mg PO DAILY tablet 03/15/17 Amox-Tr/K Cl [Augmentin - 875Mg Tablet] 1 tab PO BID #20 tablet 02/09/18 Cancer: Yes (prostate) Cardiac Disorders: Yes (AR) COPD: No HTN: Yes Hypercholesterolemia: Yes - Surgical History Cardiac Surgery: Yes (STENT x2) - Immunization History Immunization Up to Date: No - Suicide/Smoking/Psychosocial Hx Smoking Status: Yes Smoking History: Former smoker Have you smoked in the past 12 months: Yes Number of Cigarettes Smoked Daily: 2 If you are a former smoker, when did you quit?: 3 weeks ago Information on smoking cessation initiated: No Hx Alcohol Use: No Drug/Substance Use Hx: No Review of Systems - Review of Systems Constitutional: Yes: Fever Respiratory: Yes: Cough All Other Systems: Reviewed and Negative *Physical Exam - Vital Signs Last Vital Signs Temp Pulse Resp BP Pulse Ox 100.0 F H 94 H 18 121/72 97 02/09/18 11:24 02/09/18 11:24 02/09/18 11:24 02/09/18 11:24 02/09/18 11:24 - Physical Exam Comments: HEAD: NC/AT EYES: Conjuntiva clear Ears: Canals and TM's normal NOSE: No d/c THROAT: Moist mucous membrances, oral pharanx clear, uvula midline NECK: Supple without adenopathy CARDIAC: S1 S2 LUNGS: CTA Full and Equal breath sounds ABDOMEN: Soft NT ND MS: Full ROM in all joints without edema NEUROLOGIC: No gross sensory or motor deficits, NVID SKIN: Normal color and temperature no lesions or rashes 02/09/18 12:28 Medical Decision Making - Medical Decision Making 6 is most likely of bronchitis patient did have some recent travel he has no sinus congestion just productive cough I will treat him with Augmentin and have him follow up with his PCP. He is already on Mucinex.Of note is 3 weeks status post cervical spinal fusion 02/09/18 12:28 02/09/18 12:30 *DC/Admit/Observation/Transfer Diagnosis at time of Disposition: Bronchitis - Discharge Dispostion Disposition: HOME Condition at time of disposition: Stable Decision to Admit order: No - Referrals Referrals: Dion Hand [Non Staff, Medical] - - Patient Instructions Printed Discharge Instructions: DI for Acute Bronchitis Additional Instructions: Continue the Mucinex as directed. Take all the antibiotics as directed. Please follow-up with your primary care physician once 2 days for further evaluation and treatment options. Return to the emergency room should symptoms worsen or go unresolved. Tylenon for fever as directed. - Post Discharge Activity
== END 2018-02-09 12:37 | disposition home or self-care (01) ==
LOC: JERFT 11:16
DX: J40 Bronchitis, not specified as acute or chronic (principal); Z87.891 Personal history of nicotine dependence; I10 Essential (primary) hypertension; E78.00 Pure hypercholesterolemia, unspecified; Z95.5 Presence of coronary angioplasty implant and graft; Z85.46 Personal history of malignant neoplasm of prostate; I25.2 Old myocardial infarction
CPT/HCPCS: 99281-25